=== PATIENT | male | born 1985 ===

== ENCOUNTER 2023-07-30 14:41 | Inpatient (IN) | payer OTHER, SELFPAY ==
[2023-07-30] VITALS (22 sets, daily range): BP systolic 91–125; BP diastolic 58–92; BMI 27.7
[2023-07-30] MEDS: TYLENOL 1000 MG PO (10:04)
[2023-07-30 10:25] LABS: COVID-19 Antigen Negative (Negative)
--- NOTE | 2023-07-30 10:35 | ED.GENMED ---
History of Present Illness
<AVERY Hutchins - Last Filed: 07/30/23 13:50>
General
Chief Complaint: Cold/Flu/URI Symptoms
Source: patient
Exam Limitations: none
Time Seen by Provider: 07/30/23 10:21
Nursing documentation reviewed up to this point in time: agreed with
Travel History
Have you had any contact with someone who has COVID-19?: No
Do you have any symptoms of coronavirus? Fever > 100 degrees, chills, cough, shortness of breath, sore throat, loss of taste or smell, muscle aches, or headache?: Yes
Symptoms:: fever body aches
History of Present Illness
History of Present Illness:
Patient is a 38-year-old male who presents to the ER for evaluation. Patient had high fever at home body aches runny nose headache for the past several days. Other members of family have similar symptoms. Patient with very mild cough.
Review of Systems
<AVERY Hutchins - Last Filed: 07/30/23 13:50>
Review of Systems
Allergies reviewed?: Yes
Other source history: family
All Other Systems: ROS reviewed and negative except as documented in HPI and ROS
Constitutional: Reports fever, fatigue and chills
EENT: Reports runny nose
Respiratory: Denies trouble breathing
Cardiac: Reports no symptoms
ABD/GI: Reports other (dec appetite )
: Reports no symptoms
Musculoskeletal: Reports other (myalgia )
Skin: Reports no symptoms
Neurological: Reports no symptoms
Psychiatric: Reports no symptoms
Phy Exam
<AVERY Hutchins - Last Filed: 07/30/23 13:50>
General Physical Exam
General Presentation: no apparent distress
General age: appears stated age
General Skin: warm and dry
General Habitus: normal
General Mental: alert
General Hydration: dry mucous membranes
Cardiovascular Exam
Cardiovascular Exam: tachycardia
Pulmonary Exam
Pulmonary Exam: no respiratory distress and other (crackles right base )
Neurological Exam
Neurological Exam: alert and oriented x3
Musculoskeletal Exam
Musculoskeletal Exam: full ROM
Skin Exam
Skin Exam: normal color and warm/dry
Psychiatric Exam
Psychiatric Exam: normal mood/affect
Course
<AVERY Hutchins - Last Filed: 07/30/23 13:50>
Orders/Labs/Results
Orders:
Orders
07/30/23 10:02
Acetaminophen [Tylenol] 1,000 mg .ROUTE .STK-MED ONE
07/30/23 10:03
Acetaminophen [Tylenol] 1,000 mg PO NOW STA
07/30/23 10:07
COVID-19 Antigen Urgent
Source: Nasal Swab
Influenza A+B Rapid Molecular Urgent
TRACE Source: Nasal Swab
Specimen Description:
07/30/23 10:36
Electrocardiogram (*1) Stat
Reason for Study: Abdominal Pain
Cardiac Monitoring- Treatment ONCE
EKG- Treatment ONCE
IV Insert/Care/Rem.- Treatment PRN
0.9% Sodium Chloride 1000 ml [Nss] 1,000 ml IV BOLUS
Ketorolac [Toradol] 15 mg IV NOW STA
07/30/23 10:45
Blood Culture Q15M
TRACE Source: Blood/Venous
Specimen Description:
Comment: if not done in ED
07/30/23 10:46
Complete Blood Count/With Diff Urgent
Comprehensive Metabolic Panel Urgent
Manual Differential Urgent
07/30/23 10:52
CXR2 [CR Chest - 2 Views ] Urgent
Comment:
Reason For Exam: fever, low POX
07/30/23 11:26
0.9% Sodium Chloride 1000 ml [Nss] 1,000 ml IV BOLUS
07/30/23 13:32
0.9% Sodium Chloride 500 ml [Nss] 1,000 ml IV Q10H ONE
07/30/23 14:04
Azithromycin 500 mg/250 ml [Zithromax Infusion] 500 mg in 250 ml IV NOW
CefTRIAXone [Rocephin] 1,000 mg IV NOW STA
07/30/23 14:05
Oseltamivir Phosphate [Tamiflu] 75 mg PO NOW STA
07/30/23 14:09
Potassium Chloride [KCl] 40 meq PO NOW STA
07/30/23 14:10
Admit/Transfer Patient As Directed
Co-Sign Provider:
Level of Care: Inpatient admission
Assign to:: IMU- Intermediate Care
Physician / Group: Bernardo
Diagnosis: pneumonia
Reason for Hospitalization: pneumonia
Expected length of stay greater than two midnights?: Yes
ELOS- Estimated Length of Stay in days: 4
I certify the patient meets the requirements for IP care: Yes
07/30/23 14:11
Code Status As Directed
Resuscitation Status: Full Code
07/30/23 14:17
0.9% Sodium Chloride 1000 ml [Nss] 2,000 ml IV BOLUS
07/30/23 14:49
Procalcitonin Stat
PCT Algorithmm Indication: Respiratory
Blood Culture Q15M
TRACE Source: Blood/Venous
Specimen Description:
Comment: if not done in ED
07/30/23 Dinner
Regular
At Your Request: Full Participation
07/30/23 17:43
Strep pneumoniae Antigen Stat
TRACE Source: Urine
Specimen Description:
07/30/23 18:23
0.9% Sodium Chloride 1000 ml [Nss] 1,000 ml IV 150 mls/hr
Azithromycin 500 mg/250 ml [Zithromax Infusion] 500 mg in 250 ml IV Q24H
CefTRIAXone [Rocephin] 2,000 mg IV Q24H
Enoxaparin Sodium [Lovenox] 40 mg SC QPM
Ipratropium/Albuterol Sulfate [Duoneb] 3 ml INH R Q4HPRN PRN
07/30/23 18:23
PULMONARY CONSULT Routine
Consulting Provider: Jay Daniel
Was physician already notified: Yes
Reason for consult: PNA
Legionella Urinary Antigen Routine
TRACE Source: Urine
Specimen Description:
Activity As Directed
Activity Level: Out of Bed-Early Mobility
Intake/ Output As Directed
Frequency: Per unit guidelines
Vital Signs As Directed
Frequency: Per unit guidelines
Weight As Directed
Frequency: Once
Comment: on admission
O2 Therapy [RESP] Routine
Nasal Cannula Liter Flow: 2 LPM
Titrate/Wean O2 to maintain O2 sat greater than (%): 92
Special Instructions: Wean as tolerated
Pulse Ox/spot Check [RESP] Routine
Quantity: 1
DX Deep Vein Thrombosis Video Routine
07/30/23 20:00
Oseltamivir Phosphate [Tamiflu] 75 mg PO BID
07/31/23 06:00
Complete Blood Count/With Diff IN AM
Comprehensive Metabolic Panel IN AM
08/01/23 06:00
Complete Blood Count/With Diff IN AM
Comprehensive Metabolic Panel IN AM
08/02/23 06:00
Complete Blood Count/With Diff IN AM
Comprehensive Metabolic Panel IN AM
08/03/23 06:00
Complete Blood Count/With Diff IN AM
Comprehensive Metabolic Panel IN AM
08/04/23 06:00
Complete Blood Count/With Diff IN AM
Comprehensive Metabolic Panel IN AM
08/05/23 06:00
Complete Blood Count/With Diff IN AM
Comprehensive Metabolic Panel IN AM
08/06/23 06:00
Complete Blood Count/With Diff IN AM
Comprehensive Metabolic Panel IN AM
Abnormal Lab Results
07/30/23
10:46
MCV 78.3 L fL
(80.0-94.0)
Band Neutrophils 14 H %
(0-3)
Lymphocytes (Manual) 17 L %
(20-51)
Sodium 131 L mmol/L
(135-145)
Potassium 3.4 L mmol/L
(3.5-5.1)
Glucose 136 H mg/dl
(70-99)
Calcium 8.3 L mg/dl
(8.4-10.2)
AST 80 H U/L
(17-59)
ALT 90 H U/L
(0-50)
07/30/23 10:46
07/30/23 10:46
Vital Signs
Initial and Last Documented VS:
Initial Vital Signs
Temp Pulse BP
104.7 F H 138 121/78
07/30/23 09:56 07/30/23 09:56 07/30/23 09:56
Last Documented Vital Signs
Temp Pulse Resp BP Pulse Ox
102.2 F H 108 26 111/64 93
07/30/23 18:23 07/30/23 16:30 07/30/23 16:30 07/30/23 16:30 07/30/23 16:15
Park Manager consulted with Physician
Park Manager consulted with physician?: Yes
Name of Physician Consulted: rochelle
<Gerson Staton MD - Last Filed: 07/30/23 18:25>
Orders/Labs/Results
Orders:
Orders
07/30/23 10:02
Acetaminophen [Tylenol] 1,000 mg .ROUTE .STK-MED ONE
07/30/23 10:03
Acetaminophen [Tylenol] 1,000 mg PO NOW STA
07/30/23 10:07
COVID-19 Antigen Urgent
Source: Nasal Swab
Influenza A+B Rapid Molecular Urgent
TRACE Source: Nasal Swab
Specimen Description:
07/30/23 10:36
Electrocardiogram (*1) Stat
Reason for Study: Abdominal Pain
Cardiac Monitoring- Treatment ONCE
EKG- Treatment ONCE
IV Insert/Care/Rem.- Treatment PRN
0.9% Sodium Chloride 1000 ml [Nss] 1,000 ml IV BOLUS
Ketorolac [Toradol] 15 mg IV NOW STA
07/30/23 10:45
Blood Culture Q15M
TRACE Source: Blood/Venous
Specimen Description:
Comment: if not done in ED
07/30/23 10:46
Complete Blood Count/With Diff Urgent
Comprehensive Metabolic Panel Urgent
Manual Differential Urgent
07/30/23 10:52
CXR2 [CR Chest - 2 Views ] Urgent
Comment:
Reason For Exam: fever, low POX
07/30/23 11:26
0.9% Sodium Chloride 1000 ml [Nss] 1,000 ml IV BOLUS
07/30/23 13:32
0.9% Sodium Chloride 500 ml [Nss] 1,000 ml IV Q10H ONE
07/30/23 14:04
Azithromycin 500 mg/250 ml [Zithromax Infusion] 500 mg in 250 ml IV NOW
CefTRIAXone [Rocephin] 1,000 mg IV NOW STA
07/30/23 14:05
Oseltamivir Phosphate [Tamiflu] 75 mg PO NOW STA
07/30/23 14:09
Potassium Chloride [KCl] 40 meq PO NOW STA
07/30/23 14:10
Admit/Transfer Patient As Directed
Co-Sign Provider:
Level of Care: Inpatient admission
Assign to:: IMU- Intermediate Care
Physician / Group: Bernardo
Diagnosis: pneumonia
Reason for Hospitalization: pneumonia
Expected length of stay greater than two midnights?: Yes
ELOS- Estimated Length of Stay in days: 4
I certify the patient meets the requirements for IP care: Yes
07/30/23 14:11
Code Status As Directed
Resuscitation Status: Full Code
07/30/23 14:17
0.9% Sodium Chloride 1000 ml [Nss] 2,000 ml IV BOLUS
07/30/23 14:49
Procalcitonin Stat
PCT Algorithmm Indication: Respiratory
Blood Culture Q15M
TRACE Source: Blood/Venous
Specimen Description:
Comment: if not done in ED
07/30/23 Dinner
Regular
At Your Request: Full Participation
07/30/23 17:43
Strep pneumoniae Antigen Stat
TRACE Source: Urine
Specimen Description:
07/30/23 18:23
0.9% Sodium Chloride 1000 ml [Nss] 1,000 ml IV 150 mls/hr
Azithromycin 500 mg/250 ml [Zithromax Infusion] 500 mg in 250 ml IV Q24H
CefTRIAXone [Rocephin] 2,000 mg IV Q24H
Enoxaparin Sodium [Lovenox] 40 mg SC QPM
Ipratropium/Albuterol Sulfate [Duoneb] 3 ml INH R Q4HPRN PRN
07/30/23 18:23
PULMONARY CONSULT Routine
Consulting Provider: Jay Daniel
Was physician already notified: Yes
Reason for consult: PNA
Legionella Urinary Antigen Routine
TRACE Source: Urine
Specimen Description:
Activity As Directed
Activity Level: Out of Bed-Early Mobility
Intake/ Output As Directed
Frequency: Per unit guidelines
Vital Signs As Directed
Frequency: Per unit guidelines
Weight As Directed
Frequency: Once
Comment: on admission
O2 Therapy [RESP] Routine
Nasal Cannula Liter Flow: 2 LPM
Titrate/Wean O2 to maintain O2 sat greater than (%): 92
Special Instructions: Wean as tolerated
Pulse Ox/spot Check [RESP] Routine
Quantity: 1
DX Deep Vein Thrombosis Video Routine
07/30/23 20:00
Oseltamivir Phosphate [Tamiflu] 75 mg PO BID
07/31/23 06:00
Complete Blood Count/With Diff IN AM
Comprehensive Metabolic Panel IN AM
08/01/23 06:00
Complete Blood Count/With Diff IN AM
Comprehensive Metabolic Panel IN AM
08/02/23 06:00
Complete Blood Count/With Diff IN AM
Comprehensive Metabolic Panel IN AM
08/03/23 06:00
Complete Blood Count/With Diff IN AM
Comprehensive Metabolic Panel IN AM
08/04/23 06:00
Complete Blood Count/With Diff IN AM
Comprehensive Metabolic Panel IN AM
08/05/23 06:00
Complete Blood Count/With Diff IN AM
Comprehensive Metabolic Panel IN AM
08/06/23 06:00
Complete Blood Count/With Diff IN AM
Comprehensive Metabolic Panel IN AM
Abnormal Lab Results
07/30/23
10:46
MCV 78.3 L fL
(80.0-94.0)
Band Neutrophils 14 H %
(0-3)
Lymphocytes (Manual) 17 L %
(20-51)
Sodium 131 L mmol/L
(135-145)
Potassium 3.4 L mmol/L
(3.5-5.1)
Glucose 136 H mg/dl
(70-99)
Calcium 8.3 L mg/dl
(8.4-10.2)
AST 80 H U/L
(17-59)
ALT 90 H U/L
(0-50)
07/30/23 10:46
07/30/23 10:46
Vital Signs
Initial and Last Documented VS:
Initial Vital Signs
Temp Pulse BP
104.7 F H 138 121/78
07/30/23 09:56 07/30/23 09:56 07/30/23 09:56
Last Documented Vital Signs
Temp Pulse Resp BP Pulse Ox
102.2 F H 108 26 111/64 93
07/30/23 18:23 07/30/23 16:30 07/30/23 16:30 07/30/23 16:30 07/30/23 16:15
<AVERY Hutchins - Last Filed: 07/30/23 13:50>
MDM/Problems Addressed
Differential Diagnosis Includes:
Not limited to viral syndrome, COVID, influenza, pneumonia
MDM/Problems Addressed:
Patient is positive for influenza A. Patient did present febrile here at 104.7 very tachycardic. Patient received fluids here and temperature and heart rate have improved however patient has been hypoxic as low as 84% on room air after ambulating
back to the bathroom. X-ray was read as right-sided multilobe likely viral. With hypoxia will admit for continued evaluation will hold off on antibiotics is likely viral. Case discussed with admitting hospitalist. Patient has received 2 L of
normal saline maintenance fluid. Patient is on supplemental oxygen
<AVERY Hutchins - Last Filed: 07/30/23 13:50>
*Radiology
Radiology exam reviewed: radiology read reviewed
*Pulse Oximetry
Patient hypoxic: yes
*EKG
Heart Rate: 111
Rate: tachycardiac
Ischemia: non-specific ST changes
*Critical Care Note
Total Time (30-74mins, 75-104mins- exclusive of procedures): Not Applicable
ED Attending Note
<AVERY Hutchins - Last Filed: 07/30/23 13:50>
-
Portions of this chart may have been created with voice recognition software.� Occasional wrong word or��sound alike� substitutions may have occurred due to the inherent limitations of voice recognition software.
<Gerson Staton MD - Last Filed: 07/30/23 18:25>
ED Attending Note
I performed the substantive portion of visit, reviewed & personally made and approve the management plan that is documented in note by myself or STEPHANY.: Yes
ED Attending Note:
Patient without any significant past medical history, presents to ED secondary to 3-day history of fever, chills, generalized body ache, decreased appetite, and found to be confused this morning by family. Upon arrival, patient is found to be
febrile and on-call, but is able to answer questions appropriately. Patient reports intermittent cough. Denies vomiting or diarrhea. Of note, multiple family members recently have had similar symptoms, now resolved.
History and exam consistent with likely symptoms related to influenza. Patient with high degree of fever along with tachycardia and hypoxia, requiring supplemental oxygen. Patient will be treated aggressively with antipyretic and IV fluids and
will be reassessed. Patient may be candidate for Tamiflu.
After hydration, although improved, patient with sig. desaturation during ambulation (82%). As such, patient will be admitted for further evaluation and treatment.
Discharge Plan
Departure
Patient Disposition: Admit
Date of Disposition: 07/30/23
Time of Disposition: 13:44
Admit to doctor: hospitalist
Presentation/result/management discussed w/ accepting MD/DO: Hospitalist
Patient with high blood pressure during this ER visit?: No
Condition: Fair
Covid-19: Not Applicable
Discharge Problem:
Influenza A, Hypoxia
Interventions
Interventions:
*Risk Screen - Suicide Last Done: 07/30/23 10:29
*General Assessment Last Done: 07/30/23 10:28
*Neglect/Abuse Screening Last Done: 07/30/23 10:29
*ED COVID-19 Vaccine History Last Done: 07/30/23 09:56
ED- Pulmonary Assessment Last Done: 07/30/23 10:28
[2023-07-30] MEDS: TORADOL 15 MG IV (10:48)
[2023-07-30] MEDS: NSS 1000 IV ×3 (10:48→19:05)
[2023-07-30 11:00] LABS: Hematocrit 41.8 % (39.0-52.0); Mean Corp Hgb Conc. 35.9 g/dL (33.0-37.0); Mean Corpuscular Hgb 28.1 pg (27.0-31.0); Mean Corpuscular Volume 78.3 fL (80.0-94.0); Mean Platelet Volume 9.5 fL (7.4-10.4); Platelet Count 173 10^3/uL (130-400); Red Blood Cell Count 5.34 10^6/uL (4.70-6.10); Red Cell Dist. Width 13.4 % (11.5-14.5)
[2023-07-30 11:04] LABS: ALT (SGPT) 90 U/L (0-50); AST (SGOT) 80 U/L (17-59); Albumin 3.9 g/dl (3.5-5.0); Alkaline Phosphatase 40 U/L (38-126); Blood Urea Nitrogen 17 mg/dl (9-20); Calcium 8.3 mg/dl (8.4-10.2); Carbon Dioxide 25 mmol/L (22-30); Chloride 99 mmol/L (98-107); Glucose 136 mg/dl (70-99); Potassium 3.4 mmol/L (3.5-5.1); Sodium 131 mmol/L (135-145); Total Bilirubin 1.1 mg/dl (0.2-1.3); Total Protein 6.4 g/dl (6.3-8.2); eGFR > 60.00
[2023-07-30 11:24] LABS: Absolute Neutrophils -Man Diff 6.3 10^3/uL (1.4-6.5); Band Neutrophils 14 % (0-3); Lymphocytes 17 % (20-51); Monocytes 4 % (2-9); Normal RBC Morphology Yes; Platelets Checked Yes; Segmented Neutrophils 65 % (42-75)
[2023-07-30 11:25] LABS: Total Cells Counted 100
[2023-07-30] MEDS: NSS 1000 ML IV (13:32)
[2023-07-30] MEDS: TAMIFLU 75 MG PO ×2 (14:11→22:08)
[2023-07-30] MEDS: ROCEPHIN 1000 MG IV (14:16)
--- NOTE | 2023-07-30 14:18 | HPS.HSE ---
Addendum entered and electronically signed by Vazquez Chang MD 07/30/23 15:15:
I saw and examined the patient.
The [employer] GRAD[employer]EL TENDER or PA's note was reviewed and I agree with the note.
Comment: 38 y/o M who p/w fever, malaise, myalgia, cough and found to be flu POS.
98/70, 91, 20, 104.7F
NAD, awake and alert
RRR, normal S1/S2
CTAB
CN2-12 intact
diaphoretic, no rashes
CXR (read by me): Multi lobar right-sided pneumonia. No definite involvement on the left. No pleural effusion.
Bands 14%
Na 131
K 3.4
Acute hypoxemic respiratory insufficiency due to influenza A and possibly superimposed bacterial PNA:
-start Tamiflu
-start Rocephin/Azithro for now
-check Procal
-check strep/legionella Ags
-aggressive IVFs (3L NS followed by NS @ 150cc/hr)
-c/s pulm
-IMU
Original Note:
Family Physician
-
Family Physician: Hans Adrian MD
Chief Complaint
-
Cold/Flu/URI symptoms
History of Present Illness
Patient is a 38-year-old male who presents to the ER after having fever, body aches, runny nose and headache for the past several days.� Patient states his significant other is a nurse and she could have brought something home from the hospital. He
is febrile here in the ED with a non productive cough.
Medical History
Past Medical History
Past Medical History: Reports None
Past Surgical History: Reports None
Social History
Tobacco: Non-smoker
Alcohol: None
Drug: None
Personal:
Living: With Family
Employment: Employed
Family History
Family History: Not pertinent
Allergies / Home Medications
Allergies reflects when Allergies were last updated in [facility].
Home Medications with original date entered in [facility] [facility]
Allergy/Medication List:
Allergies
Allergy/AdvReac Type Severity Reaction Status Date / Time
No Known Allergies Allergy Unverified 07/30/23 09:56
Home Medications
No Meds [No Current Medications] 07/30/23
Review of Systems
-
History Source: Patient
A 12 point ROS was completed and negative except as noted: Yes
Constitutional: Reports Fever, Fatigue and Chills
EENT: Reports Runny Nose
Respiratory: Reports Cough
Cardiac: Reports No Symptoms
Abdomen/GI: Reports No Symptoms
: Reports No Symptoms
Musculoskeletal: Reports No Symptoms
Skin: Reports No Symptoms
Neurological: Reports Headache
Endocrine: Reports No Symptoms
Hematologic/Lymphatic: Reports No Symptoms
Psych: Reports Calm
Physical Exam
Vital Signs
Vital Signs
Temp Pulse Resp BP Pulse Ox
98.3 F 91 20 98/70 93
07/30/23 13:58 07/30/23 13:45 07/30/23 13:45 07/30/23 13:30 07/30/23 13:45
Physical Exam
General: Well Developed, Comfortable and Conversant
HEENT: NormoCephalic, Anicteric and Atraumatic
Respiratory: Crackles (R base)
Cardiac: Tachycardia
Breast: Deferred by me
GI: Soft, Non Tender, Non Distended and Normal Bowel Sounds
Rectal: Deferred by Provider
Genito-urinary: Deferred by me
Musculoskeletal: No Clubbing, No Cyanosis and No Edema
Skin: Warm and Dry
Neuro: Awake, Alert, Oriented and AO x 3
Hematologic/Lymphatic: No Lymphadenopathy
Psych: Calm and Intact Judgment/Insight
Laboratory Results
-
07/30/23 10:46
07/30/23 10:46
Laboratory Results
Total Bilirubin 1.1 mg/dl (0.2-1.3) 07/30/23 10:46
AST 80 U/L (17-59) H 07/30/23 10:46
ALT 90 U/L (0-50) H 07/30/23 10:46
Alkaline Phosphatase 40 U/L (38-126) 07/30/23 10:46
Impression/Plan
-
IMPRESSION/PLAN:
Admit to IMU under Hospitalist service
Chest x-ray
IMPRESSION:
Multi lobar right-sided pneumonia. No definite involvement on the left. No pleural effusion.
#Acute hypoxemic respiratory insufficiency due to influenza A and possibly superimposed bacterial PNA
-start Tamiflu
-start Rocephin/Azithro for now
-check Procal
-check strep/legionella Ags
-aggressive IVFs (3L NS followed by NS @ 150cc/hr)
-c/s pulmonary
-IMU
Full Code
DVT Prophylaxis: Lovenox
[2023-07-30] MEDS: ZITHROMAX INFUSION 250 IV (14:34)
[2023-07-30] MEDS: NSS 2000 IV (14:36)
--- NOTE | 2023-07-30 15:06 | CON.PUL ---
Consultation
Consultation Request
Date/Time Consultation Requested: 07/30/2023-3:15 PM
Date/Time Consultation Performed: 07/30/2023-3:30 PM
Requesting Provider: Hospitalist
Performing Provider: Dr. Daniel
Reason for Consultation: Pneumonia
Medical History
-
Chief Complaint: Shortness of breath
History of Present Illness:
38-year-old without previous medical history presents with flu and multilobar pneumonia-pulmonary consulted for shortness of breath/pneumonia 07/30/2023. His household was sick and he recently developed fevers, body aches, runny nose, for several
days. He had shortness of breath, nonproductive cough and was febrile. He came to the emergency room with a nonproductive cough. He currently complains of some shortness of breath with exertion but no chest pain, chest tightness, pleurisy,
hemoptysis, abdominal pain, nausea, weakness or leg swelling.
Past Medical History
Past Medical History: None (No history of hypertension, CAD, pulmonary, renal or gastrointestinal issues)
Social History
Tobacco: Non-smoker
Alcohol: None
Drug: None
Personal:
Living: With Family
Occupational Exposures: No known asbestos exposure
Environmental Exposures: No known tuberculosis exposure
Family History
Family History: Reviewed & Not Pertinent
Allergies / Home Medications
Allergies
Allergy/AdvReac Type Severity Reaction Status Date / Time
No Known Allergies Allergy Unverified 07/30/23 09:56
Home Medications
Medication Instructions Recorded Confirmed Last Taken Type
No Meds [No Current Medications] 07/30/23 07/30/23 Unknown History
Review of Systems
-
Unable to Obtain full review of systems at this time due to: Other (Per HPI)
Vitals / Labs / Diagnostic Testing
Vital Signs
Temp Pulse Resp BP Pulse Ox
98.3 F 91 20 98/70 93
07/30/23 13:58 07/30/23 13:45 07/30/23 13:45 07/30/23 13:30 07/30/23 13:45
Lab Data
07/30/23 10:46
07/30/23 10:46
Microbiology
07/30/23 10:07 Nasal Swab Influenza Types A & B (ANNE) - Final
Influenza A Positive, NAAT
Diagnostic Testing:
Physical Exam
-
Exam:
Well-nourished and well-developed in no apparent distress
HEENT-atraumatic, normocephalic
Neck-supple, no JVD, no bruit
Heart-regular rate and rhythm-no murmurs, rubs or gallops
Chest with diminished breath sounds, crackles and rhonchi
Abdomen-soft, nontender, nondistended, no hepatosplenomegaly
Extremities-no cyanosis, clubbing, edema and good peripheral pulses
Integument-intact, no rashes, lesions or ecchymosis
Neurology-alert and oriented, nonfocal motor and sensory exam
Assessment
-
38-year-old without previous medical history presents with flu and multilobar pneumonia-pulmonary consulted for shortness of breath/pneumonia 07/30/2023.
Assessment
Shortness of breath/multi lobar right-sided pneumonia
Influenza A
Hyponatremia-serum sodium 131
Hypokalemia
Mild hyperglycemia-blood sugar 136
Transaminitis
Conditions present prior to admission:
None
Plan
Patient will be admitted to monitored bed
Supplemental oxygen as needed
High flow oxygen if needed
BiPAP if needed
Noninvasive ventilation if needed
Intubated mechanically ventilated if needed
Aspiration precautions
Nebulizers or bronchodilators as needed
Incentive spirometry
Mucolytic's
Mucus clearing devices
Follow radiographically
Check cultures
Influenza positive
Begin Tamiflu
Begin community-acquired pneumonia antibacterial antibiotics-Rocephin and azithromycin initiated
Procalcitonin pending
Urine Legionella and streptococcal antigens pending
Replace electrolytes
Monitor blood sugar
Insulin supplementation as needed
Follow-up LFTs
DVT prophylaxis
Nutrition
Early mobilization
Reviewed with mother at the bedside as well as emergency room nursing
Outpatient pulmonary follow-up to ensure clearing of infiltrates on chest x-ray, PFTs, etc.
Diagnostic data:
Chest x-ray 07/30/2023-multilobar right-sided pneumonia
Data Reviewed
-
EKG: Report reviewed by me
Radiology: Image personally visualized and interpreted and Report reviewed by me
Medical Tests (Nuc Med, Echo etc): Report reviewed by me
Labs: Labs reviewed by me
Old Records: Reviewed
Total Time Spent with Patient (in minutes): 45
[2023-07-30 15:35] LABS: Procalcitonin 16.76 ng/ml (0.0-0.25)
[2023-07-30] MEDS: KCL 270 MEQ IV (15:58)
[2023-07-30] MEDS: TYLENOL 650 MG PO (18:35)
[2023-07-30] MEDS: LOVENOX SC (19:32)
--- NOTE | 2023-07-30 21:46 | PTCARENOTE ---
Pt arrived from ED via stretcher and able to ambulate into room without assistance. AAOx3. Temp on arrival was 100.7; down from 102.2 in the ED. Gave pt a couple ice bags to place under arms and back of neck to help bring down his temp. Pt
lethargic. BP 118/72 HR 105. Oriented pt to room. Resting in bed with call allen in reach.
[2023-07-30] MEDS: CALDOLOR 104 MG IV (22:27)
--- NOTE | 2023-07-30 22:41 | PTCARENOTE ---
Upon recheck of pt temperature it was 102.5. Notified CRNP. Pickett ordered and administered as well as an order placed for cooling blanket.
[2023-07-31] VITALS (21 sets, daily range): BP systolic 105–126; BP diastolic 34–101
--- NOTE | 2023-07-31 00:20 | PTCARENOTE ---
After pt received the caldolor, temp decreased to 99.5. Cooling blanket not needed at this time. Will trend temperature throughout shift.
[2023-07-31] MEDS: NSS 1000 IV ×3 (02:30→20:54)
[2023-07-31 04:47] LABS: Hematocrit 40.8 % (39.0-52.0); Hemoglobin 14.1 g/dL (13.0-18.0); Mean Corp Hgb Conc. 34.6 g/dL (33.0-37.0); Mean Corpuscular Hgb 28.3 pg (27.0-31.0); Mean Corpuscular Volume 81.9 fL (80.0-94.0); Mean Platelet Volume 9.9 fL (7.4-10.4); Platelet Count 157 10^3/uL (130-400); Red Blood Cell Count 4.98 10^6/uL (4.70-6.10); Red Cell Dist. Width 13.3 % (11.5-14.5); White Blood Cell Count 5.6 10^3/uL (4.8-10.8)
[2023-07-31 05:29] LABS: ALT (SGPT) 68 U/L (0-50); AST (SGOT) 57 U/L (17-59); Albumin 2.7 g/dl (3.5-5.0); Alkaline Phosphatase 37 U/L (38-126); Blood Urea Nitrogen 9 mg/dl (9-20); Calcium 7.7 mg/dl (8.4-10.2); Carbon Dioxide 23 mmol/L (22-30); Chloride 106 mmol/L (98-107); Estimated Creatinine Clearance > 125 ml/min; Glucose 124 mg/dl (70-99); Potassium 4.3 mmol/L (3.5-5.1); Sodium 136 mmol/L (135-145); Total Bilirubin 1.2 mg/dl (0.2-1.3); Total Protein 4.9 g/dl (6.3-8.2); eGFR > 60.00
[2023-07-31 08:10] LABS: Absolute Neutrophils -Man Diff 3.9 10^3/uL (1.4-6.5); Atypical Lymphocytes 1 %; Band Neutrophils 13 % (0-3); Lymphocytes 22 % (20-51); Metamyelocytes 1 % (-); Monocytes 6 % (2-9); Normal RBC Morphology Yes; Platelets Checked Yes; Segmented Neutrophils 57 % (42-75); Total Cells Counted 100
[2023-07-31] MEDS: TAMIFLU 75 MG PO ×2 (08:37→19:49)
[2023-07-31] MEDS: ROCEPHIN 2000 MG IV (08:37)
[2023-07-31] MEDS: STERILE WATER FOR INJECTION 20 ML IV (08:37)
--- NOTE | 2023-07-31 09:13 | W.PN.HOSP.TC ---
Today's Communication/Plan
-
see bold
Assessment / Plan
Assessment / Plan
Gen: NAD, AAOx3.
Eyes: EOMI, PERRLA, no scleral icterus.
Neck: supple.
CV: tachy, reg rhythm, +S1/S2, no m/r/g.
Resp: CTAB, no rales, wheezes, or rhonchi.
Abd: +BS, soft, NT, ND
Skin: No rashes.
Neuro: CN 2-12 intact, non-focal.
Psych: Normal mood and affect.
CXR (read by me): Multi lobar right-sided pneumonia. No definite involvement on the left. No pleural effusion.
Acute hypoxemic respiratory insufficiency due to influenza A and superimposed bacterial PNA:
-cont Tamiflu
-Procal 16.76, cont Rocephin/Azithro
-urinary strep/legionella Ags NEG
-bandemia slightly improved
-follow BCxs
-Transaminitis, likely due to a very mild shock liver, improving
-s/p IVF bolus on admission, cont maintenance IVFs
-pulm following
-IMU
-wean O2 as tolerated
Hyponatremia, resolved
Hypokalemia, resolved
FULL/Lovenox, encourage ambulation
Anticipated Discharge: 24 - 48 hours
Subjective/Interval History
-
Date of Service: July 31, 2023
Pt reports he is feeling somewhat better, concerned about appetite.
Objective Data
-
Labs:
Laboratory Results
07/31/23
04:26
WBC 5.6
Hgb 14.1
Hct 40.8
Plt Count 157
Sodium 136
Potassium 4.3 D
Chloride 106
Carbon Dioxide 23
BUN 9
Creatinine 0.6 L
Glucose 124 H
Calcium 7.7 L
Total Bilirubin 1.2
AST 57
ALT 68 H
Alkaline Phosphatase 37 L
Vital Signs:
Vital Signs
Temp Pulse Resp BP Pulse Ox
99.4 F 105 25 116/71 94
07/31/23 03:10 07/31/23 06:00 07/31/23 06:00 07/31/23 06:00 07/31/23 06:00
I&O
07/30/23 07/31/23 08/01/23
06:59 06:59 06:59
Intake Total 2054
Balance 2054
[2023-07-31] MEDS: TYLENOL 650 MG PO ×2 (09:56→18:25)
--- NOTE | 2023-07-31 11:17 | PTCARENOTE ---
Assumed care of pt from night RN, pt AAOx3, makes needs known. Continues on O2 at 3L nc, SPO2 95%. Temp 101.3, prn Tylenol administered. Pt reports no pain, occasional cough. Encouraged to use IS. Continues on PO Tamiflu and IV ABT, remains on
Droplet precautions. Will continue to monitor through shift.
--- NOTE | 2023-07-31 11:28 | CM ---
CM reviewed medical records. Patient confirmed demographics. Patient lives independently. Patient does not have a history of SNF, VN or DME. Patient is active with his PCP. Patient uses [facility] for medication services.
PLAN: home no needs.
--- NOTE | 2023-07-31 12:30 | W.PN.PUL.V3 ---
Today's Communication / Plan
-
Wean oxygen
Continue antibiotics
Follow-up chest x-ray
Increase activity
Assessment
-
38-year-old without previous medical history presents with flu and multilobar pneumonia-pulmonary consulted for shortness of breath/pneumonia 07/30/2023.
Assessment
Shortness of breath/multi lobar right-sided pneumonia
Influenza A
Hyponatremia-serum sodium 131
Hypokalemia
Mild hyperglycemia-blood sugar 136
Transaminitis
Conditions present prior to admission:
None
Plan
Respiratory status mildly improved
Continue supplemental oxygen-currently on 3 L
Will need to assess discharge supplemental oxygen needs prior to discharge-told patient and mother he may temporarily need supplemental oxygen at time of discharge-hopefully can avoid
High flow oxygen if needed
Aspiration precautions
Nebulizers or bronchodilators as needed
Incentive spirometry
Mucolytic's
Mucus clearing devices
Follow-up chest x-ray 08/01/2023
Culture results reviewed
Unable to produce sputum
Influenza positive
Tamiflu continues
Rocephin and azithromycin continue
Procalcitonin elevated
Urine Legionella and streptococcal antigens-negative
Continue to replace electrolytes
Monitor blood sugar
Insulin supplementation as needed
Follow-up LFTs-improving LFTs
DVT prophylaxis-on Lovenox
Nutrition
Begin ambulation
Reviewed with mother at the bedside
Outpatient pulmonary follow-up to ensure clearing of infiltrates on chest x-ray, PFTs, etc.
Diagnostic data:
Chest x-ray 07/30/2023-multilobar right-sided pneumonia
Subjective Data
-
Date of Service:
Date of Service: July 31, 2023
Chief Complaint: Pulmonary Follow Up, Dyspnea Follow Up and Pneumonia Follow Up
Subjective:
Feels slightly better, still short of breath with exertion, nonproductive cough, no chest pain or abdominal pain
Review of Systems
General: Other (Per HPI)
Objective Data
Data Reviewed
Vital Signs / I&O:
Vital Signs
Temp Pulse Resp BP Pulse Ox
101.4 F H 108 22 113/78 95
07/31/23 07:15 07/31/23 11:19 07/31/23 11:19 07/31/23 11:02 07/31/23 11:19
Intake and Output
07/30/23 07/31/23 08/01/23
06:59 06:59 06:59
Intake Total 2054
Balance 2054
SaO2: 95
Nasal Cannula flow liters per minute: 3
Physical Exam
General: Respiratory Distress (n) and Comfortable
HEENT: Normocephalic, Anicteric and Moist Mucous Membranes
Cardiovascular: Regular Rhythm
Respiratory: Wheeze (n), Crackles, Rhonchi (n), Non-Labored Respirations, Accessory Resp Muscle Use (n) and Stridor (n)
GI: Soft, Non Distended and Non Tender
Neurology: Awake and No Motor Deficits
Skin: Warm, Good Color, Cyanosis (n) and Jaundice (n)
Labs/Micro/Reports
Lab Data
07/31/23 04:26
07/31/23 04:26
Microbiology
07/31/23 05:53 Urine Legionella Urinary Antigen - Final
Negative for Legionella pneumophila Serogroup 1 antigen.
A negative result does not rule out the possiblity of
Legionella infection due to other serogroups or species of
Legionella. Clinical correlation is recommended.
07/30/23 17:43 Urine Streptococcus pneumoniae Antigen (M - Final
Negative for Streptococcus pneumoniae antigen.
A negative result does not exclude infection with
Streptococcus pneumoniae. Clinical correlation is
recommended.
07/30/23 10:07 Nasal Swab Influenza Types A & B (ANNE) - Final
Influenza A Positive, NAAT
--- NOTE | 2023-07-31 13:07 | PTCARENOTE ---
Pt reported to this RN that he has been experiencing double vision since last night, pupils equal and reactive, no other symptoms reported. Blurriness resolves when pt closes one eye. Dr. Chang notified, no new orders at this time. Will continue to
monitor through shift and pass on to night RN.
[2023-07-31] MEDS: ZITHROMAX INFUSION 250 IV (14:22)
[2023-07-31] MEDS: LOVENOX 40 MG SC (16:59)
[2023-08-01] VITALS (12 sets, daily range): BP systolic 115–140; BP diastolic 72–88
--- NOTE | 2023-08-01 05:32 | PTCARENOTE ---
AAOx3, SaO2 95% on 1L O2. SaO2 observed decreasing to 88% when O2 dislodged from nares. Pt ambulated to bathroom with assist of one to maintain cords. Assessment as documented. Pt c/o frequent productive cough increasing this AM. Continues with
complaints of double vision, reports unchanged from previous shift. Call allen placed within reach. Pt encouraged to ring for members of the care team as needed.
[2023-08-01 05:40] LABS: % Basophils 0.2 % (0-2); % Immature Granulocytes 0.5 % (0-0.5); % Lymphocytes 10.1 % (20.5-51.1); % Monocytes 5.4 % (1.7-9.3); % Neutrophils 83.8 % (42.2-75.2); Absolute Lymphocytes 0.6 10^3/uL (1.2-3.4); Absolute Monocytes 0.3 10^3/uL (0.1-0.6); Hemoglobin 12.8 g/dL (13.0-18.0); Mean Corp Hgb Conc. 34.6 g/dL (33.0-37.0); Mean Corpuscular Hgb 27.9 pg (27.0-31.0); Mean Corpuscular Volume 80.8 fL (80.0-94.0); Mean Platelet Volume 9.8 fL (7.4-10.4); Nucleated Red Blood Cells % 0 % (-); Platelet Count 143 10^3/uL (130-400); Red Blood Cell Count 4.58 10^6/uL (4.70-6.10); Red Cell Dist. Width 13.2 % (11.5-14.5)
[2023-08-01 06:07] LABS: ALT (SGPT) 57 U/L (0-50); AST (SGOT) 41 U/L (17-59); Albumin 2.7 g/dl (3.5-5.0); Alkaline Phosphatase 46 U/L (38-126); Blood Urea Nitrogen 7 mg/dl (9-20); Calcium 7.5 mg/dl (8.4-10.2); Carbon Dioxide 23 mmol/L (22-30); Chloride 107 mmol/L (98-107); Estimated Creatinine Clearance > 125 ml/min; Glucose 110 mg/dl (70-99); Potassium 3.6 mmol/L (3.5-5.1); Sodium 133 mmol/L (135-145); Total Bilirubin 0.9 mg/dl (0.2-1.3); eGFR > 60.00
[2023-08-01] MEDS: NSS 1000 IV (08:51)
[2023-08-01] MEDS: ROCEPHIN 2000 MG IV (08:55)
[2023-08-01] MEDS: TAMIFLU 75 MG PO ×2 (08:55→20:31)
[2023-08-01] MEDS: STERILE WATER FOR INJECTION 20 ML IV (08:56)
--- NOTE | 2023-08-01 09:07 | W.PN.HOSP.TC ---
Addendum entered and electronically signed by Vazquez Chang MD 08/01/23 13:27:
Sepsis due to Flu A with superimposed pneumonia
Relative hypocalcemia
Original Note:
Today's Communication/Plan
-
see bold
Assessment / Plan
Assessment / Plan
Gen: NAD, AAOx3.
Eyes: EOMI, PERRLA, no scleral icterus.
Neck: supple.
CV: RRR, +S1/S2, no m/r/g.
Resp: mild rales in the R base
Abd: +BS, soft, NT, ND
Skin: No rashes.
Neuro: remains CN 2-12 intact, non-focal.
Psych: Normal mood and affect.
07/30/23 14:49 Blood/Venous Blood Culture - Preliminary
No Growth in 24 hours- Final report to follow
07/30/23 10:45 Blood/Venous Blood Culture - Preliminary
No Growth in 24 hours- Final report to follow
07/31/23 05:53 Urine Legionella Urinary Antigen - Final
Negative for Legionella pneumophila Serogroup 1 antigen.
A negative result does not rule out the possiblity of
Legionella infection due to other serogroups or species of
Legionella. Clinical correlation is recommended.
07/30/23 17:43 Urine Streptococcus pneumoniae Antigen (M - Final
Negative for Streptococcus pneumoniae antigen.
A negative result does not exclude infection with
Streptococcus pneumoniae. Clinical correlation is
recommended.
07/30/23 10:07 Nasal Swab Influenza Types A & B (ANNE) - Final
Influenza A Positive, NAAT
CXR (read by me): Multi lobar right-sided pneumonia. No definite involvement on the left. No pleural effusion.
Acute hypoxemic respiratory insufficiency due to influenza A and superimposed bacterial PNA:
-cont Tamiflu
-Procal 16.76, cont Rocephin/Azithro
-urinary strep/legionella Ags NEG
-bandemia now resolved
-BCxs NGTD
-Transaminitis, likely due to a very mild shock liver, improving
-s/p IVF bolus on admission, cont maintenance IVFs
-pulm following
-IMU
-wean O2 as tolerated (now down to 95% on RA at rest on my exam)
Diplopia:
-check MRI brain w/wo
Hyponatremia, mild
Hypokalemia, resolved
FULL/Lovenox, encourage ambulation
Transfer to NH
Anticipated Discharge: Within 24 hours
Subjective/Interval History
-
Date of Service: August 01, 2023
Pt now reporting diplopia since he's been sick.
Objective Data
-
Labs:
Laboratory Results
08/01/23
05:25
WBC 6.0
Hgb 12.8 L
Hct 37.0 L
Plt Count 143
Sodium 133 L
Potassium 3.6
Chloride 107
Carbon Dioxide 23
BUN 7 L
Creatinine 0.6 L
Glucose 110 H
Calcium 7.5 L
Total Bilirubin 0.9
AST 41
ALT 57 H
Alkaline Phosphatase 46
Vital Signs:
Vital Signs
Temp Pulse Resp BP Pulse Ox
98.8 F 86 29 125/86 95
08/01/23 03:35 08/01/23 05:19 08/01/23 05:19 08/01/23 05:19 08/01/23 05:30
I&O
07/31/23 08/01/23 08/02/23
06:59 06:59 06:59
Intake Total 2054 2310 / 2310
Output Total 500 / 500
Balance 2054 1810 / 1810
--- NOTE | 2023-08-01 09:14 | W.PN.PUL3 ---
Today's Communication / Plan
-
CXR this AM appears worsened, reviewed with patient and mother at bedside
Productive cough noted, sputum culture to be sent
Added mucus clearance and reviewed techniques--mucinex, vest, acapella
Wean O2 further as tolerated
Continue temp monitoring
Assessment
-
38-year-old without previous medical history presents with flu and multilobar pneumonia-pulmonary consulted for shortness of breath/pneumonia 07/30/2023.
Shortness of breath/multi lobar right-sided pneumonia
Influenza A
Hyponatremia-serum sodium 131
Hypokalemia
Mild hyperglycemia-blood sugar 136
Transaminitis
Conditions present prior to admission:
None
Plan
Respiratory status mildly improved
Continue supplemental oxygen-currently on 1-2 L
Will need to assess discharge supplemental oxygen needs prior to discharge
We discussed mucus clearance, will add mucinex/vest
Aspiration precautions
Nebulizers or bronchodilators as needed
Incentive spirometry
Mucolytic's
Mucus clearing devices
Follow-up chest x-ray 08/01/2023--this was reviewed with patient showing worsening PNA
This may be the peak, will obtain CXR in another 48 hours
Culture results reviewed
Unable to produce sputum, resend order today as he seems more productive
Influenza positive
Tamiflu continues
Agree with empirics abx--Rocephin and azithromycin continue
Procalcitonin elevated
Urine Legionella and streptococcal antigens-negative
Continue to replace electrolytes
Monitor blood sugar
Insulin supplementation as needed
Follow-up LFTs-improving LFTs
DVT prophylaxis-on Lovenox
Nutrition
Begin ambulation
Reviewed with mother at the bedside
Outpatient pulmonary follow-up to ensure clearing of infiltrates on chest x-ray, PFTs, etc.
Diagnostic data:
CXR 08/01/23- Findings suggesting moderate right upper lobe and moderate right lower lobe pneumonia. Progressed. Underlying mass in the right upper lobe cannot be completely excluded.
Chest x-ray 07/30/2023-multilobar right-sided pneumonia
Subjective Data
-
Date of Service:
Date of Service: August 01, 2023
Chief Complaint: Pulmonary Follow Up
Subjective:
patient seen and examined, in isolation
remains on low O2, 1L that is weaning down
still having cough, productive sputum
febrile yesterday
Objective Data
Data Reviewed
Vital Signs / I&O / Oxygen:
Vital Signs
Temp Pulse Resp BP Pulse Ox
98.8 F 86 29 125/86 95
08/01/23 03:35 08/01/23 05:19 08/01/23 05:19 08/01/23 05:19 08/01/23 05:30
Intake and Output
07/31/23 08/01/23 08/02/23
06:59 06:59 06:59
Intake Total 2054 2310 / 2310
Output Total 500 / 500
Balance 2054 1810 / 1810
SaO2 95
Nasal Cannula flow liters per 1
minute
Physical Exam
General: Respiratory Distress (n) and Comfortable
HEENT: Normocephalic, Anicteric and Moist Mucous Membranes
Cardiovascular: Regular Rhythm
Respiratory: Wheeze (n), Crackles (R>L), Rhonchi (n), Non-Labored Respirations, Accessory Resp Muscle Use (n) and Stridor (n)
GI: Soft, Non Distended and Non Tender
Neurology: Awake, Alert, Oriented, AO x 3 and No Motor Deficits
Skin: Warm, Good Color, Cyanosis (n) and Jaundice (n)
Labs/Micro/Reports
Lab Data
08/01/23 05:25
08/01/23 05:25
Microbiology
07/30/23 14:49 Blood/Venous Blood Culture - Preliminary
No Growth in 24 hours- Final report to follow
07/30/23 10:45 Blood/Venous Blood Culture - Preliminary
No Growth in 24 hours- Final report to follow
07/31/23 05:53 Urine Legionella Urinary Antigen - Final
Negative for Legionella pneumophila Serogroup 1 antigen.
A negative result does not rule out the possiblity of
Legionella infection due to other serogroups or species of
Legionella. Clinical correlation is recommended.
07/30/23 17:43 Urine Streptococcus pneumoniae Antigen (M - Final
Negative for Streptococcus pneumoniae antigen.
A negative result does not exclude infection with
Streptococcus pneumoniae. Clinical correlation is
recommended.
07/30/23 10:07 Nasal Swab Influenza Types A & B (ANNE) - Final
Influenza A Positive, NAAT
[2023-08-01 09:34] LABS: Magnesium 1.9 mg/dl (1.6-2.3)
[2023-08-01] MEDS: CALCIUM GLUCONATE 100 IV (10:51)
--- NOTE | 2023-08-01 13:13 | PN.CDI ---
CDI
- -
CDI:
Physician Documentation Request
Admit Date: 07/30/23 14:41
Dear Doctor Bernardo,
Please review the following and provide your response in the progress notes.
Clinical Indicators:
- 08/01 1 gram IV Calcium gluconate given
- Calcium levels as follows:
Laboratory Tests
07/30/23 07/31/23 08/01/23
10:46 04:26 05:25
Calcium 8.3 L 7.7 L 7.5 L
Please provide a diagnosis for the above lab values that were monitored and treatment rendered:
Hypocalcemia
Clinically insignificant abnormal lab value
Other
Use of terms such as suspected, likely, concern for, or probable (associated with a specific diagnosis that is being evaluated, monitored, or treated as if it exists) are acceptable and can be coded in the inpatient setting, when documented at the
time of discharge.
Thank you,
Michel Wood RN
CDI Specialist
Please use your independent medical judgment in providing your response.
--- NOTE | 2023-08-01 13:16 | PN.CDI ---
CDI
- -
CDI:
Physician Documentation Request
Admit Date: 07/30/23 14:41
Dear Doctor Bernardo,
Please review the following and provide your response in the progress notes.
Clinical Indicators:
- Patient admit for Influenza A with superimposed bacterial pneumonia
- On 07/30 admission: Tmax 104.7, HR 100-110's
- 9L IVF given
- IV abx Ceftriaxone, Zithromax given
Please clarify which most accurately describes the patient:
Sepsis due to Flu A with superimposed pneumonia
SIRS due to a non-infectious source
Other
Use of terms such as suspected, likely, concern for, or probable (associated with a specific diagnosis that is being evaluated, monitored, or treated as if it exists) are acceptable and can be coded in the inpatient setting, when documented at the
time of discharge.
Thank you,
Michel Wood RN
CDI Specialist
Please use your independent medical judgment in providing your response.
[2023-08-01] MEDS: MUCINEX 1200 MG PO ×2 (14:10→20:30)
[2023-08-01] MEDS: ZITHROMAX INFUSION 250 IV (14:10)
--- NOTE | 2023-08-01 16:12 | CON.NEURO ---
Consultation
Order
CC:
HPI: This is a 38-year-old man who presented to [facility] on 07/30/2023 with malaise and fever. Neurology consultation was requested for neurology an evaluation and management of diplopia/abnormal brain MRI. According to the
patient he developed intermittent horizontal binocular painless diplopia worse at distance during hospitalization. No reports of headache, dysarthria, dysphagia, ataxia, vertigo, motor or sensory deficits.
ER VS: 121/78, HR 138, T 40.4C
PDMP:no Red meds
Labs: Na 131, gluc 136, normal WBC PL, elevated procalcitonin, mg 1.9, AST 80, ALT 90, normal Alk phos, neg SARS-COv-2
EKG-sinus tachy, QTc Int : 397 ms
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 Paranasal sinus mucosal disease/sinusitis.
PMH:none
PSH:none
SH: ; nonsmoker; woks as an engeneerl deneid excessive ETOh use
FH:no known history fo demyelinating disease
All:
ROS:
Constitutional: Negative. Negative for chills, fever and unexpected weight change.
HENT: Negative for ear pain, hearing loss, tinnitus and trouble swallowing.
Eyes: Negative. Negative for photophobia, pain and visual disturbance.
Respiratory: Negative for cough, choking and shortness of breath.
Cardiovascular: Negative for chest pain, palpitations and leg swelling.
Gastrointestinal: Negative for abdominal pain and vomiting.
Endocrine: Negative. Negative for cold intolerance.
Genitourinary: Negative for dysuria, flank pain and urgency.
Musculoskeletal: Negative for back pain, gait problem, neck pain and neck stiffness.
Skin: Negative for rash.
Allergic/Immunologic: Negative. Negative for immunocompromised state.
Neurological: Negative for dizziness, tremors, seizures, speech difficulty, numbness and headaches.
Psychiatric/Behavioral: Negative for behavioral problems, confusion and hallucinations.
General: Well developed. In no acute distress.
Cardio: Regular rate and rhythm without murmur. Extremities are without cyanosis or edema.
Neuro:
Mental Status: Alert, oriented to person, place, and date. Normal attention and recall. Good fund of knowledge. Follows complex requests across the midline. Comprehension, naming, and repetition intact. Immediate and delayed recall 3/3.
Cranial Nerves: . Pupils are equally round and reactive to light. EOMs full. Visual hall full to confrontation. No ptosis. No nystagmus. V1-V3 intact to light touch and pinprick bilaterally, symmetric. Face symmetric. Normal hearing AU.
The palate elevated well. SCMs and traps 5/5. Tongue midline. No dysarthria.
Motor: Normal bulk and tone. No pronator or arm drift. Strength 5/5 throughout. No clonus.
Reflexes: 2+ throughout the upper extremities and knees. 2/2 in AJs. Plantar responses flexor bilaterally.
Sensory: Normal pinprick, vibration and JPS.
Coordination: No dysmetria or tremor.
Gait: deferred
Assessment and Plan:
I. 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 Differential diagnosis include vascular, metabolic, neoplastic
II. Influenza A
III. Mild hyponatremia
-Fall precaution
-Avoid hyponatremia
-Please check ammonia, thiamine level
-Eye patch
-Repeat brain MRI in 2-3 weeks
-OP Neurology follow up in 2-3 weeks
I personally reviewed all radiology and labs along with past medical records pertinent to current medical problems.
Thank you for allowing us to participate in the care of this patient. Please do not hesitate to contact us with any questions or concerns.
Subjective/Objective
Subjective Data
Date of Service: August 01, 2023
Objective Data
Vital Signs
Temp Pulse Resp BP Pulse Ox
37.1 C 92 37 120/77 96
08/01/23 03:35 08/01/23 10:53 08/01/23 10:53 08/01/23 10:53 08/01/23 14:24
Lab Results
08/01/23 05:25
08/01/23 05:25
Sodium 133 mmol/L (135-145) L 08/01/23 05:25
Potassium 3.6 mmol/L (3.5-5.1) 08/01/23 05:25
BUN 7 mg/dl (9-20) L 08/01/23 05:25
Glucose 110 mg/dl (70-99) H 08/01/23 05:25
Calcium 7.5 mg/dl (8.4-10.2) L 08/01/23 05:25
Patient Allergies
No Known Allergies Allergy (Unverified 07/30/23 09:56)
Modified [place] Score (MRS)
-
MRS Score:
Medications
-
Active Medications
Generic Name Dose Route Start Last Admin
Trade Name Freq PRN Reason Stop Dose Admin
Acetaminophen 650 mg 07/30/23 18:25 07/31/23 18:25
Acetaminophen 325 Mg Tablet PO 08/27/23 18:24 650 mg
Q6HPRN PRN Administration
mild pain/ fever>100.5F
Albuterol/Ipratropium 3 ml 07/30/23 18:23
Ipratropium 0.5/Albuterol 3 Mg (3 Ml Ampul) INH 08/27/23 18:22
R Q4HPRN PRN
shortness of breath/wheezing
Protocol
Ceftriaxone Sodium 2,000 mg 07/31/23 08:00 08/01/23 08:55
Ceftriaxone 2,000 Mg/20 Ml Vial IV 2,000 mg
Q24H RUBA Administration
Enoxaparin Sodium 40 mg 07/30/23 18:23 07/31/23 16:59
Enoxaparin Sodium 40 Mg/0.4 Ml Syringe SC 08/27/23 18:22 40 mg
QPM RUBA Administration
Guaifenesin 1,200 mg 08/01/23 12:00 08/01/23 14:10
Guaifenesin 600 Mg Extended Release Tablet PO 08/29/23 11:59 1,200 mg
Q12 RUBA Administration
Azithromycin 500 mg in 250 mls @ 250 mls/hr 07/31/23 14:00 08/01/23 14:10
Zithromax Infusion IV 250 mls
Q24H RUBA Administration
Oseltamivir Phosphate 75 mg 07/30/23 22:00 08/01/23 08:55
Oseltamivir (Tamiflu) 75 Mg Capsule PO 08/04/23 21:59 75 mg
BID RUBA Administration
Sodium Chloride 0 flush 07/30/23 19:00
Sodium Chloride 0.9% (Flush) Syringe IV 08/27/23 18:59
PER PROTOCOL RUBA
Sterile Water 20 ml 07/31/23 08:00 08/01/23 08:56
Sterile Water For Injection 20 Ml Vial IV 08/28/23 07:59 20 ml
Q24H RUBA Administration
Home Medications
Medication Instructions Recorded
No Meds [No Current Medications] 07/30/23
Vital Signs and Labs
-
Vital Signs and Labs:
Vital Signs
Temp Pulse Resp BP Pulse Ox
37.1 C 92 37 120/77 96
08/01/23 03:35 08/01/23 10:53 08/01/23 10:53 08/01/23 10:53 08/01/23 14:24
Lab Results
08/01/23 05:25
08/01/23 05:25
Sodium 133 mmol/L (135-145) L 08/01/23 05:25
Potassium 3.6 mmol/L (3.5-5.1) 08/01/23 05:25
BUN 7 mg/dl (9-20) L 08/01/23 05:25
Glucose 110 mg/dl (70-99) H 08/01/23 05:25
Calcium 7.5 mg/dl (8.4-10.2) L 08/01/23 05:25
Home Medications
-
Home Medications
No Meds [No Current Medications] 07/30/23
Medications
-
Medications:
Generic Name Dose Route Start Last Admin
Trade Name Freq PRN Reason Stop Dose Admin
Acetaminophen 650 mg 07/30/23 18:25 07/31/23 18:25
Acetaminophen 325 Mg Tablet PO 08/27/23 18:24 650 mg
Q6HPRN PRN Administration
mild pain/ fever>100.5F
Albuterol/Ipratropium 3 ml 07/30/23 18:23
Ipratropium 0.5/Albuterol 3 Mg (3 Ml Ampul) INH 08/27/23 18:22
R Q4HPRN PRN
shortness of breath/wheezing
Protocol
Ceftriaxone Sodium 2,000 mg 07/31/23 08:00 08/01/23 08:55
Ceftriaxone 2,000 Mg/20 Ml Vial IV 2,000 mg
Q24H RUBA Administration
Enoxaparin Sodium 40 mg 07/30/23 18:23 07/31/23 16:59
Enoxaparin Sodium 40 Mg/0.4 Ml Syringe SC 08/27/23 18:22 40 mg
QPM RUBA Administration
Guaifenesin 1,200 mg 08/01/23 12:00 08/01/23 14:10
Guaifenesin 600 Mg Extended Release Tablet PO 08/29/23 11:59 1,200 mg
Q12 RUBA Administration
Azithromycin 500 mg in 250 mls @ 250 mls/hr 07/31/23 14:00 08/01/23 14:10
Zithromax Infusion IV 250 mls
Q24H RUBA Administration
Oseltamivir Phosphate 75 mg 07/30/23 22:00 08/01/23 08:55
Oseltamivir (Tamiflu) 75 Mg Capsule PO 08/04/23 21:59 75 mg
BID RUBA Administration
Sodium Chloride 0 flush 07/30/23 19:00
Sodium Chloride 0.9% (Flush) Syringe IV 08/27/23 18:59
PER PROTOCOL RUBA
Sterile Water 20 ml 07/31/23 08:00 08/01/23 08:56
Sterile Water For Injection 20 Ml Vial IV 08/28/23 07:59 20 ml
Q24H RUBA Administration
[2023-08-01] MEDS: LOVENOX 40 MG SC (17:29)
--- NOTE | 2023-08-01 18:09 | PTCARENOTE ---
Report given to Milady CARNES for transfer to room 422/1. Labs completed prior to transfer. Patient wearing eye patch due to blurrred vision. Neurology consulted. Patient ate a good dinner from home. Family at bedsside. Patient weaned off oxygen, 96% on
room air at this time. Sputum culture sent.
[2023-08-01 18:46] LABS: Ammonia < 9 umol/L (9-30)
--- NOTE | 2023-08-01 20:11 | PTCARENOTE ---
Pt transported via wheelchair, with all his belongings.
[2023-08-02 07:25] LABS: % Basophils 0.2 % (0-2); % Eosinophils 0.5 % (0-6); % Immature Granulocytes 0.7 % (0-0.5); % Lymphocytes 11.6 % (20.5-51.1); % Monocytes 8.3 % (1.7-9.3); % Neutrophils 78.7 % (42.2-75.2); Absolute Lymphocytes 0.7 10^3/uL (1.2-3.4); Absolute Monocytes 0.5 10^3/uL (0.1-0.6); Absolute Neutrophils 4.7 10^3/uL (1.4-6.5); Hematocrit 34.8 % (39.0-52.0); Hemoglobin 12.3 g/dL (13.0-18.0); Mean Corp Hgb Conc. 35.3 g/dL (33.0-37.0); Mean Corpuscular Hgb 27.8 pg (27.0-31.0); Mean Corpuscular Volume 78.7 fL (80.0-94.0); Mean Platelet Volume 10.1 fL (7.4-10.4); Nucleated Red Blood Cells % 0 % (-); Platelet Count 173 10^3/uL (130-400); Red Blood Cell Count 4.42 10^6/uL (4.70-6.10); Red Cell Dist. Width 13.3 % (11.5-14.5); White Blood Cell Count 5.9 10^3/uL (4.8-10.8)
[2023-08-02] MEDS: ROCEPHIN 2000 MG IV (07:35)
[2023-08-02] MEDS: MUCINEX 1200 MG PO (07:35)
[2023-08-02] MEDS: STERILE WATER FOR INJECTION 20 ML IV (07:35)
[2023-08-02] MEDS: TAMIFLU 75 MG PO ×2 (07:37→19:37)
[2023-08-02 07:55] LABS: ALT (SGPT) 73 U/L (0-50); AST (SGOT) 47 U/L (17-59); Alkaline Phosphatase 45 U/L (38-126); Blood Urea Nitrogen 10 mg/dl (9-20); Calcium 7.7 mg/dl (8.4-10.2); Carbon Dioxide 27 mmol/L (22-30); Chloride 105 mmol/L (98-107); Estimated Creatinine Clearance > 125 ml/min; Glucose 108 mg/dl (70-99); Potassium 3.6 mmol/L (3.5-5.1); Sodium 135 mmol/L (135-145); Total Bilirubin 0.7 mg/dl (0.2-1.3); Total Protein 5.4 g/dl (6.3-8.2); eGFR > 60.00
[2023-08-02 08:15] VITALS: BP 129/83
--- NOTE | 2023-08-02 08:33 | W.PN.NEURO.1 ---
Today's Communication / Plan
-
.
Neuro Assessment/Plan
Assessment
This is a 38-year-old RH male who presented to on 07/30/2023 with malaise and fever and was found to have influenza A and multi lobar right-sided pneumonia.�According to the patient he developed intermittent horizontal binocular painless diplopia
worse at distance during hospitalization, prompting MRI brain and neurology consultation.
ER VS: 121/78, HR 138, T 40.4C
PDMP:no Red meds
Labs: Na 131, gluc 136, normal WBC PL, elevated procalcitonin, mg 1.9, AST 80, ALT 90, normal Alk phos, neg SARS-COv-2
EKG-sinus tachy, QTc Int : 397 ms
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 Paranasal sinus mucosal disease/sinusitis.
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
FH:no known history fo demyelinating disease
I. 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
II. Influenza A
III. Mild hyponatremia
Plan
-Fall precautions
-Avoid hyponatremia
-Thiamine level pending
-Eye patch for comfort
-Will follow as-needed. Please contact our Neurology service with any questions/concerns. Patient should follow-up with Neurology in about 3 weeks. May see the REPORTING PROCESS CONSULTANT or Dr. Barrera. Will need repeat MRI brain noncontrast as an outpatient, this can be
ordered at his office follow-up appointment.
Subjective/Objective
Subjective Data
Date of Service: August 02, 2023
No acute events overnight. Patient is reporting intermittent vertically tacked diplopia with distant objects only, resolves with closing one eye. He denies any headache, dizziness, ataxia, apraxia, speech/swallow difficulty, numbness, nausea,
weakness, chest pain, palpitations, and shortness of breath.
Objective Data
Vital Signs
Temp Pulse Resp BP Pulse Ox
98.2 F 81 18 129/83 93
08/02/23 08:15 08/02/23 08:15 08/02/23 08:15 08/02/23 08:15 08/02/23 08:15
Lab Results
08/02/23 06:55
08/02/23 06:55
Sodium 135 mmol/L (135-145) 08/02/23 06:55
Potassium 3.6 mmol/L (3.5-5.1) 08/02/23 06:55
BUN 10 mg/dl (9-20) 08/02/23 06:55
Glucose 108 mg/dl (70-99) H 08/02/23 06:55
Calcium 7.7 mg/dl (8.4-10.2) L 08/02/23 06:55
Patient Allergies
No Known Allergies Allergy (Unverified 07/30/23 09:56)
Review of Systems
-
History Source: Patient
EENT: Other (vertical diplopia with distant objects, resolves with closing one eye)
Respiratory: Negative Trouble Breathing
Cardiac: Negative Chest Pain or Palpitations
Abdomen/GI: Negative Nausea
Genitourinary: Negative Difficulty Voiding
Neuro: Negative Dizzy, Headache, Weakness, Numbness, Ataxia, Tremors or Speech Problem
Physical Exam
-
General: Well Developed, Well Nourished and No Apparent Distress
Eyes: No Ptosis and PERRLA
HEENT: Normocephalic and Atraumatic
Neck: Full Range of Motion
Respiratory: No Dyspnea
GI: Non-distended
Extremities: No Clubbing, No Cyanosis and No Edema
Extended Neurological Exam
Mood & Affect: Mood Unremarkable and Affect Unremarkable
Attention Span & Concentration: Awake, Alert and Interactive
Memory: Unremarkable (AAOx3) and Able to Recall
Tremor: Hand Tremor Absent and Head Tremor Absent
Involuntary Movement: None
Speech: Quality Unremarkable, Quantity Unremarkable and Rate of Production Unremarkable
Cranial Nerve II: Left Eye: Pupillary Reactivity Unremarkable, Pupillary Size Unremarkable and Visual [place] Intact
Cranial Nerve II: Right Eye: Pupillary Reactivity Unremarkable, Pupillary Size Unremarkable and Visual [place]on Intact
Cranial Nerves III, IV, : Extraocular Movement: Extraocular Movement Full in all Directions
Cranial Nerve V: Facial Sensation: Intact to Light Touch
Cranial Nerve VII: Facial Symmetry: Normal Facial Symmetry
Cranial Nerve VIII: Hearing: Unremarkable Hearing to Normal Conversational Volume
Cranial Nerves IX, X: Palate Movement: Palate Elevation Symmetric
Cranial Nerve XI: Shoulder Shrug: Unremarkable
Cranial Nerve XII: Tongue Protusion: Midline
Muscle Strength, Overall: Full Throughout
Muscle Bulk & Tone: Bulk Unremarkable and Tone Unremarkable
Pronator Drift: No Drift in Upper Extremities and No Drift in Lower Extremities
Deep Tendon Reflexes: Unremarkable Throughout
Cold Sensation: Unremarkable
Vibration Sensation: Unremarkable
Touch Sensation: Double Simultaneous Stimulation Unremarkable
Coordination: Kjebda-wtsp-seltag Testing Unremarkable
Babinski Sign: Absent Bilaterally
Gait & Station: Up from Seated Without Problem
Data Reviewed
-
MRI Head: Report Reviewed and Image Reviewed
Labs: Report Reviewed
Reviewed with: Physician and Patient
Medications
-
Active Medications
Generic Name Dose Route Start Last Admin
Trade Name Freq PRN Reason Stop Dose Admin
Acetaminophen 650 mg 07/30/23 18:25 07/31/23 18:25
Acetaminophen 325 Mg Tablet PO 08/27/23 18:24 650 mg
Q6HPRN PRN Administration
mild pain/ fever>100.5F
Albuterol/Ipratropium 3 ml 07/30/23 18:23
Ipratropium 0.5/Albuterol 3 Mg (3 Ml Ampul) INH 08/27/23 18:22
R Q4HPRN PRN
shortness of breath/wheezing
Protocol
Ceftriaxone Sodium 2,000 mg 07/31/23 08:00 08/02/23 07:35
Ceftriaxone 2,000 Mg/20 Ml Vial IV 2,000 mg
Q24H RUBA Administration
Enoxaparin Sodium 40 mg 07/30/23 18:23 08/01/23 17:29
Enoxaparin Sodium 40 Mg/0.4 Ml Syringe SC 08/27/23 18:22 40 mg
QPM RUBA Administration
Guaifenesin 1,200 mg 08/01/23 12:00 08/02/23 07:35
Guaifenesin 600 Mg Extended Release Tablet PO 08/29/23 11:59 1,200 mg
Q12 RUBA Administration
Azithromycin 500 mg in 250 mls @ 250 mls/hr 07/31/23 14:00 08/01/23 14:10
Zithromax Infusion IV 250 mls
Q24H RUBA Administration
Oseltamivir Phosphate 75 mg 07/30/23 22:00 08/02/23 07:37
Oseltamivir (Tamiflu) 75 Mg Capsule PO 08/04/23 21:59 75 mg
BID RUBA Administration
Sodium Chloride 0 flush 07/30/23 19:00
Sodium Chloride 0.9% (Flush) Syringe IV 08/27/23 18:59
PER PROTOCOL RUBA
Sterile Water 20 ml 07/31/23 08:00 08/02/23 07:35
Sterile Water For Injection 20 Ml Vial IV 08/28/23 07:59 20 ml
Q24H RUBA Administration
Home Medications
Medication Instructions Recorded
No Meds [No Current Medications] 07/30/23
--- NOTE | 2023-08-02 09:48 | W.PN.PUL3 ---
Today's Communication / Plan
-
Sputum culture reviewed, poor specimen quality, would complete empiric abx for complete course
Continue tamiflu, continue supportive care
Repeat CXR in AM
Continue airway clearance measures
If showing improvement, can consider discharge planning
Assessment
-
38-year-old without previous medical history presents with flu and multilobar pneumonia-pulmonary consulted for shortness of breath/pneumonia 07/30/2023.
Severe multi lobar right-sided pneumonia
Acute Influenza A infection with severe sepsis
Shortness of breath
Hyponatremia-serum sodium 131
Hypokalemia
Mild hyperglycemia-blood sugar 136
Transaminitis
Conditions present prior to admission:
None
Plan
Respiratory status improved, now on RA and stable
Continue mucus clearance, mucinex/vest
Aspiration precautions
Nebulizers or bronchodilators as needed
Incentive spirometry
Mucolytic's
Mucus clearing devices
Follow-up chest x-ray 08/01/2023--this was reviewed with patient showing worsening PNA
This may be the peak, will obtain CXR in AM
Culture results reviewed
Unable to produce sputum initially, order resent--poor specimen
Influenza positive
Tamiflu continued for complete course
Agree with empirics abx--Rocephin and azithromycin continue for complete course
Procalcitonin elevated
Urine Legionella and streptococcal antigens-negative
Continue to replace electrolytes
Monitor blood sugar
Insulin supplementation as needed
Follow-up LFTs-improving LFTs
DVT prophylaxis-on Lovenox
Nutrition
Begin ambulation
Reviewed with mother at the bedside
Outpatient pulmonary follow-up to ensure clearing of infiltrates on chest x-ray, PFTs, etc.
Diagnostic data:
CXR 08/01/23- Findings suggesting moderate right upper lobe and moderate right lower lobe pneumonia. Progressed. Underlying mass in the right upper lobe cannot be completely excluded.
Chest x-ray 07/30/2023-multilobar right-sided pneumonia
Subjective Data
-
Date of Service:
Date of Service: August 02, 2023
Chief Complaint: Pulmonary Follow Up
Subjective:
patient seen and examined, no acute events ON
now off oxygen
feels his SOB is better
Objective Data
Data Reviewed
Vital Signs / I&O / Oxygen:
Vital Signs
Temp Pulse Resp BP Pulse Ox
98.2 F 81 18 129/83 93
08/02/23 08:15 08/02/23 08:15 08/02/23 08:15 08/02/23 08:15 08/02/23 08:15
Intake and Output
08/01/23 08/02/23 08/03/23
06:59 06:59 06:59
Intake Total 2310 / 2310 1280 / 1280
Output Total 500 / 500
Balance 1810 / 1810 1280 / 1280
SaO2 93
Nasal Cannula flow liters per 1
minute
Physical Exam
General: Respiratory Distress (n) and Comfortable
HEENT: Normocephalic, Anicteric and Moist Mucous Membranes
Cardiovascular: Regular Rhythm
Respiratory: Wheeze (n), Crackles (R>L), Rhonchi (n), Non-Labored Respirations, Accessory Resp Muscle Use (n) and Stridor (n)
GI: Soft, Non Distended and Non Tender
Neurology: Awake, Alert, Oriented, AO x 3 and No Motor Deficits
Skin: Warm, Good Color, Cyanosis (n) and Jaundice (n)
Labs/Micro/Reports
Lab Data
08/02/23 06:55
08/02/23 06:55
Microbiology
08/01/23 15:10 Sputum Gram Stain - Preliminary
07/30/23 14:49 Blood/Venous Blood Culture - Preliminary
No Growth in 48 hours- Final report to follow
07/30/23 10:45 Blood/Venous Blood Culture - Preliminary
No Growth in 48 hours- Final report to follow
07/31/23 05:53 Urine Legionella Urinary Antigen - Final
Negative for Legionella pneumophila Serogroup 1 antigen.
A negative result does not rule out the possiblity of
Legionella infection due to other serogroups or species of
Legionella. Clinical correlation is recommended.
07/30/23 17:43 Urine Streptococcus pneumoniae Antigen (M - Final
Negative for Streptococcus pneumoniae antigen.
A negative result does not exclude infection with
Streptococcus pneumoniae. Clinical correlation is
recommended.
07/30/23 10:07 Nasal Swab Influenza Types A & B (ANNE) - Final
Influenza A Positive, NAAT
[2023-08-02] MEDS: TYLENOL 650 MG PO ×2 (11:27→17:45)
[2023-08-02] MEDS: DUONEB 3 ML INH ×3 (11:54→19:59)
[2023-08-02] MEDS: ZITHROMAX INFUSION 250 IV (13:43)
--- NOTE | 2023-08-02 13:45 | W.PN.HOSP.TC ---
Today's Communication/Plan
-
AB
CXR in am
Assessment / Plan
Assessment / Plan
No Diplopia now
07/30/23 14:49 Blood/Venous Blood Culture - Preliminary
No Growth in 24 hours- Final report to follow
07/30/23 10:45 Blood/Venous Blood Culture - Preliminary
No Growth in 24 hours- Final report to follow
07/31/23 05:53 Urine Legionella Urinary Antigen - Final
Negative for Legionella pneumophila Serogroup 1 antigen.
A negative result does not rule out the possiblity of
Legionella infection due to other serogroups or species of
Legionella. Clinical correlation is recommended.
07/30/23 17:43 Urine Streptococcus pneumoniae Antigen (M - Final
Negative for Streptococcus pneumoniae antigen.
A negative result does not exclude infection with
Streptococcus pneumoniae. Clinical correlation is
recommended.
07/30/23 10:07 Nasal Swab Influenza Types A & B (ANNE) - Final
Influenza A Positive, NAAT
MRI-
1. 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 This finding is associated with a wide range of conditions, most commonly seizures or
metabolic disturbances but can also be seen with infection and various drug/toxins. This is usually transient and short-term follow-up can be performed as clinically indicated.
2. Paranasal sinus mucosal disease/sinusitis.
3. Large expansile mucous retention cyst opacifying the left maxillary sinus.
#Acute hypoxemic respiratory insufficiency due to influenza A and superimposed bacterial PNA:
-cont Tamiflu
-Did not get Flu vaccine this year
-Procal 16.76, cont Rocephin/Azithro-Repeat in am
-urinary strep/legionella Ags NEG
-bandemia now resolved
-BCxs NGTD
-Transaminitis, likely due to a viral infection-improving
-pulm following
-Off O2
#Diplopia:
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
-Neuro eval appreciated
-Rpt MRI as OP
-No Diplopia at present. Happens intermittently.
#Hyponatremia, mild
#Hypokalemia, resolved
#FULL CODE
#DVT Prophylaxis-Lovenox, encourage ambulation
D/W Mom at bed side
D/W RN
Anticipated Discharge: Within 24 hours
Subjective/Interval History
-
Date of Service: August 02, 2023
Objective Data
-
Labs:
Laboratory Results
08/02/23
06:55
WBC 5.9
Hgb 12.3 L
Hct 34.8 L
Plt Count 173 D
Sodium 135
Potassium 3.6
Chloride 105
Carbon Dioxide 27
BUN 10
Creatinine 0.6 L
Glucose 108 H
Calcium 7.7 L
Total Bilirubin 0.7
AST 47
ALT 73 H
Alkaline Phosphatase 45
Vital Signs:
Vital Signs
Temp Pulse Resp BP Pulse Ox
100.5 F H 80 20 129/83 93
08/02/23 11:12 08/02/23 12:01 08/02/23 12:01 08/02/23 08:15 08/02/23 08:15
I&O
08/01/23 08/02/23 08/03/23
06:59 06:59 06:59
Intake Total 2310 / 2310 1280 / 1280
Output Total 500 / 500
Balance 1810 / 1810 1280 / 1280
--- NOTE | 2023-08-02 14:26 | CON.ID ---
Consultation
-
Date/Time Consultation Requested: 08/02/23 13:57
Date/Time Consultation Performed: 08/02/23 14:27
Requesting Provider: Dr Ventura
Performing Provider: Dr Inman
Reason for Consultation: Influenza pneumonia
Chief Complaint / Past History
Chief Complaint
fever, malaise, myalgia, cough
History of Present Illness
Mr Brennan is a 38 year old male previously well who presented here 07/30 for fever, myalgias, rhinorrhea, cough - productive, headache for several days.
Since arrival here he was initially febrile to 102.9 the improved for two days - today febrile to 100.5 orally, bp stable, initially intermittently tachypenic now resolved, initially tachycardic now resolved, wbc 8 on arrival 5 today, hgb on arrival
15 now 12, plt 173, no eos on arrival now present, L shift has been resolving, t bili 0.7, ast 47, alt 73, alk phos 45, ammonia <9, covid ag neg, CXR 07/30 rul and rll pneumonia 08/01 cxr progression of infiltrates, he has been on azithromycin,
ceftriaxone and tamiflu, strep and legionella ags are negative, sputum culture normal olga lidia, procal 07/30 16, brain mri notable for sinusitis, 07/30 influenza a pcr positive. Over course of hospitalization with some painless diplopia and found to
have lesion of corpus collosum - seen by neruology with eye patch and plans for outpatient follow up. Today with relapse of fevers and ID is consulted for assistance with management. Today reporting no headaches, diplopia a bit better. minimal
sinus tenderness. No sore throat. Cough nonproductive - improving. No: nauesa, vomiting, diarrhea, constipation, dysuria, rashes, new joint pains, pain over IV sites or lower extremity swelling. 'overall im a lot better.' asking about dc.
Past History
Past Medical History: None
Past Surgical History: None
Allergy History:
No Known Allergies Allergy (Unverified 07/30/23 09:56)
Medications Reviewed: Yes
Social History
Tobacco: Non-Smoker
Alcohol: None
Drug: None
Family History
Family History: Not Pertinent
Review of Systems
Review of Systems
General: Fever and Chills
All systems: All other systems were reviewed and were negative
Vital Signs
Temp Pulse Resp BP Pulse Ox
100.5 F H 80 20 129/83 93
08/02/23 11:12 08/02/23 12:01 08/02/23 12:01 08/02/23 08:15 08/02/23 08:15
Physical Exam
Physical Exam
Constitutional: No Acute Distress, Chronically Ill and Non-toxic
Cardiovascular: Regular Rate and S1/S2; Negative Murmur or Rub
Pulmonary: Clear and Symmetric; Negative Wheezes, Rales or Rhonchi
Gastrointestinal: Soft, Non Tender, Non Distended and Normal Bowel Sounds
Skin: Warm and Dry; Negative Rash or Jaundice
Neurological: Awake
Lab / Diagnostic Study Results
08/02/23 06:55
08/02/23 06:55
Abs Immat Gran (auto) 0.0 10^3/uL (0-0.05) 08/02/23 06:55
Absolute Neuts (auto) 4.7 10^3/uL (1.4-6.5) 08/02/23 06:55
Absolute Lymphs (auto) 0.7 10^3/uL (1.2-3.4) L 08/02/23 06:55
Absolute Monos (auto) 0.5 10^3/uL (0.1-0.6) 08/02/23 06:55
Absolute Basos (auto) 0.0 10^3/uL (0-0.2) 08/02/23 06:55
Total Counted 100 07/31/23 04:26
Immature Gran % 0.7 % (0-0.5) H 08/02/23 06:55
Neutrophils % 78.7 % (42.2-75.2) H 08/02/23 06:55
Lymphocytes % 11.6 % (20.5-51.1) L 08/02/23 06:55
Monocytes % 8.3 % (1.7-9.3) 08/02/23 06:55
Eosinophils % 0.5 % (0-6) 08/02/23 06:55
Basophils % 0.2 % (0-2) 08/02/23 06:55
Abs Neuts (Manual) 3.9 10^3/uL (1.4-6.5) 07/31/23 04:26
Segmented Neutrophils 57 % (42-75) 07/31/23 04:26
Band Neutrophils 13 % (0-3) H 07/31/23 04:26
Lymphocytes (Manual) 22 % (20-51) 07/31/23 04:26
Procalcitonin 16.76 ng/ml (0.0-0.25) H* 07/30/23 14:49
Microbiology Results
Micro:
08/01/23 15:10 Respiratory Culture - Preliminary
Sputum Usual Respiratory Olga Lidia
Gram Stain - Preliminary
07/30/23 14:49 Blood Culture - Preliminary
Blood/Venous No Growth in 48 hours- Final report to follow
07/30/23 10:45 Blood Culture - Preliminary
Blood/Venous No Growth in 48 hours- Final report to follow
07/31/23 05:53 Legionella Urinary Antigen - Final
Urine Negative for Legionella pneumophila Serogroup 1 antigen.
A negative result does not rule out the possiblity of
Legionella infection due to other serogroups or species of
Legionella. Clinical correlation is recommended.
07/30/23 17:43 Streptococcus pneumoniae Antigen (M - Final
Urine Negative for Streptococcus pneumoniae antigen.
A negative result does not exclude infection with
Streptococcus pneumoniae. Clinical correlation is
recommended.
07/30/23 10:07 Influenza Types A & B (ANNE) - Final
Nasal Swab Influenza A Positive, NAAT
Assessment / Plan
Relapsed Fever
Influenza A
Pneumonia - influenza vs suprainfection
- if another T >100.5 orally then would send repeat blood cultures x2, sputum culture if able, ua, US BL LE for DVT and start vancomycin
- suspect this was a one off event given patient has no new symptoms, if no further fevers then could consider discharge tomorrow with final day of tamiflu (5 day course) and cefdinir 300 mg PO BID. The azithromycin can be stopped after 5 doses (IE
tomorrows dose) due to long half life.
- repeat CXR is planned for tomorrow
- will follow up tomorrow if still in house
[2023-08-02 15:18] VITALS: BP 125/78
[2023-08-02 15:21] LABS: Vitamin D, 25-OH*** < 12.8 ng/mL (30-80)
[2023-08-02] MEDS: LOVENOX 40 MG SC (17:18)
[2023-08-02] MEDS: MUCINEX PO ×2 (19:37→19:41)
[2023-08-02] MEDS: ROBITUSSIN DM 5 ML PO (20:17)
[2023-08-02] MEDS: MELATONIN 5 MG PO (22:24)
[2023-08-02] MEDS: MOTRIN 400 MG PO (22:24)
[2023-08-02 23:05] VITALS: BP 135/83
[2023-08-03 07:55] VITALS: BP 146/90
[2023-08-03 08:00] LABS: % Basophils 0.4 % (0-2); % Eosinophils 0.4 % (0-6); % Immature Granulocytes 3.5 % (0-0.5); % Lymphocytes 10.2 % (20.5-51.1); % Monocytes 13.1 % (1.7-9.3); % Neutrophils 72.4 % (42.2-75.2); Absolute Immature Granulocytes 0.2 10^3/uL (0-0.05); Absolute Lymphocytes 0.5 10^3/uL (1.2-3.4); Absolute Monocytes 0.6 10^3/uL (0.1-0.6); Absolute Neutrophils 3.3 10^3/uL (1.4-6.5); Hematocrit 35.9 % (39.0-52.0); Hemoglobin 12.5 g/dL (13.0-18.0); Mean Corp Hgb Conc. 34.8 g/dL (33.0-37.0); Mean Corpuscular Hgb 27.8 pg (27.0-31.0); Mean Platelet Volume 9.9 fL (7.4-10.4); Nucleated Red Blood Cells % 0 % (-); Platelet Count 199 10^3/uL (130-400); Red Blood Cell Count 4.49 10^6/uL (4.70-6.10); Red Cell Dist. Width 13.1 % (11.5-14.5); White Blood Cell Count 4.6 10^3/uL (4.8-10.8)
[2023-08-03 08:43] LABS: ALT (SGPT) 89 U/L (0-50); AST (SGOT) 57 U/L (17-59); Alkaline Phosphatase 49 U/L (38-126); Blood Urea Nitrogen 8 mg/dl (9-20); Carbon Dioxide 24 mmol/L (22-30); Chloride 100 mmol/L (98-107); Estimated Creatinine Clearance > 125 ml/min; Glucose 118 mg/dl (70-99); Potassium 3.3 mmol/L (3.5-5.1); Sodium 134 mmol/L (135-145); Total Bilirubin 0.8 mg/dl (0.2-1.3); Total Protein 5.4 g/dl (6.3-8.2); eGFR > 60.00
[2023-08-03] MEDS: TYLENOL 650 MG PO (08:57)
[2023-08-03] MEDS: STERILE WATER FOR INJECTION 20 ML IV (08:58)
[2023-08-03] MEDS: ROCEPHIN 2000 MG IV (08:58)
[2023-08-03] MEDS: ROBITUSSIN DM 5 ML PO ×2 (08:59→17:20)
[2023-08-03] MEDS: TAMIFLU 75 MG PO ×2 (08:59→20:50)
[2023-08-03] MEDS: MUCINEX PO ×2 (09:15→19:48)
--- NOTE | 2023-08-03 09:24 | W.PN.PUL3 ---
Today's Communication / Plan
-
Fever noted, w/u sent by care team
CXR this AM reviewed with patient and mother--improving
Has been stable on RA
Discharge planning per team pending fever eval
Outpatient pulmonary FU recommended
Assessment
-
38-year-old without previous medical history presents with flu and multilobar pneumonia-pulmonary consulted for shortness of breath/pneumonia 07/30/2023.
Severe multi lobar right-sided pneumonia
Acute Influenza A infection with severe sepsis
Shortness of breath
Hyponatremia-serum sodium 131
Hypokalemia
Mild hyperglycemia-blood sugar 136
Transaminitis
Conditions present prior to admission:
None
Plan
Respiratory status improved, now on RA and stable
Continue mucus clearance, mucinex/vest
Aspiration precautions
Nebulizers or bronchodilators as needed
Incentive spirometry
Mucolytic's
Mucus clearing devices
Follow-up chest x-ray 08/01/2023--this was reviewed with patient showing worsening PNA
This may be the peak
Repeat CXR today reviewed and improving
Culture results reviewed
Unable to produce sputum initially, order resent--poor specimen
Influenza positive
Tamiflu continued for complete course
Agree with empirics abx--Rocephin and azithromycin continue for complete course
Procalcitonin elevated
Urine Legionella and streptococcal antigens-negative
Continue to replace electrolytes
Monitor blood sugar
Insulin supplementation as needed
Follow-up LFTs-improving LFTs
DVT prophylaxis-on Lovenox
Nutrition
Begin ambulation
Reviewed with mother at the bedside
Outpatient pulmonary follow-up to ensure clearing of infiltrates on chest x-ray, PFTs, etc.
Diagnostic data:
CXR 08/01/23- Findings suggesting moderate right upper lobe and moderate right lower lobe pneumonia. Progressed. Underlying mass in the right upper lobe cannot be completely excluded.
Chest x-ray 07/30/2023-multilobar right-sided pneumonia
Subjective Data
-
Date of Service:
Date of Service: August 03, 2023
Chief Complaint: Pulmonary Follow Up
Subjective:
patient seen and examined, no acute events ON
remains stable on RA
no new complaints
fever noted today
Objective Data
Data Reviewed
Vital Signs / I&O / Oxygen:
Vital Signs
Temp Pulse Resp BP Pulse Ox
102.5 F H 94 16 146/90 97
08/03/23 07:55 08/03/23 07:55 08/03/23 07:55 08/03/23 07:55 08/03/23 07:55
Intake and Output
08/02/23 08/03/23 08/04/23
06:59 06:59 06:59
Intake Total 1280 / 1280 480 / 480
Balance 1280 / 1280 480 / 480
SaO2 97
Nasal Cannula flow liters per 1
minute
Physical Exam
General: Respiratory Distress (n) and Comfortable
HEENT: Normocephalic, Anicteric and Moist Mucous Membranes
Cardiovascular: Regular Rhythm
Respiratory: Clear, Wheeze (n), Rhonchi (n), Non-Labored Respirations, Accessory Resp Muscle Use (n) and Stridor (n)
GI: Soft, Non Distended and Non Tender
Neurology: Awake, Alert, Oriented, AO x 3 and No Motor Deficits
Skin: Warm, Good Color, Cyanosis (n) and Jaundice (n)
Labs/Micro/Reports
Lab Data
08/03/23 07:31
08/03/23 07:31
Microbiology
07/30/23 14:49 Blood/Venous Blood Culture - Preliminary
No Growth in 72 hours- Final report to follow
07/30/23 10:45 Blood/Venous Blood Culture - Preliminary
No Growth in 72 hours- Final report to follow
08/01/23 15:10 Sputum Respiratory Culture - Preliminary
Usual Respiratory Chika
08/01/23 15:10 Sputum Gram Stain - Preliminary
07/31/23 05:53 Urine Legionella Urinary Antigen - Final
Negative for Legionella pneumophila Serogroup 1 antigen.
A negative result does not rule out the possiblity of
Legionella infection due to other serogroups or species of
Legionella. Clinical correlation is recommended.
07/30/23 17:43 Urine Streptococcus pneumoniae Antigen (M - Final
Negative for Streptococcus pneumoniae antigen.
A negative result does not exclude infection with
Streptococcus pneumoniae. Clinical correlation is
recommended.
--- NOTE | 2023-08-03 10:37 | W.PN.ID1 ---
Date of Service
Date of Service: August 03, 2023
Today's Communication
clinically improved however fevers persists
suprainfection vs drug fever - overall I am most suspicious of drug fever - antibiotics adjusted
follow clinically
Assessment / Plan
Relapsed Fever
Influenza A
Pneumonia - influenza vs suprainfection
- send repeat blood cultures x2, sputum culture if able, covid ag, , US BL LE for DVT
- start vancomycin
- start cefepime stop ceftriaxone
- azithromycin can be stopped after 5 doses (IE todays dose) due to long half life.
- repeat CXR improved
- QTc acceptable
- follow clinically
Chief Complaint
-: Fever, Pneumonia and Other (Influenza)
Subjective / Review of Systems
fevers ongoing
bp stable
no specific complaints - feels a lot better - asking about dc
no DVT and lines without phlebitis
anxious for discharge
Vital Signs / Physical Exam
Vital Signs
Vital Signs
Temp Pulse Resp BP Pulse Ox
102.5 F H 94 16 146/90 97
08/03/23 07:55 08/03/23 07:55 08/03/23 07:55 08/03/23 07:55 08/03/23 07:55
Physical Exam
Constitutional: No Acute Distress
Cardiovascular: Regular Rate and S1/S2; Negative Murmur or Rub
Pulmonary: Clear and Symmetric; Negative Wheezes or Rales
Gastrointestinal: Soft, Non Tender, Non Distended and Normal Bowel Sounds
Skin: Warm and Dry; Negative Rash or Jaundice
Lines: PIV
Objective Data
Lab Data
Lab Results
08/03/23 07:31
08/03/23 07:31
Estimated Creat Clear > 125 ml/min 08/03/23 07:31
Total Bilirubin 0.8 mg/dl (0.2-1.3) 08/03/23 07:31
AST 57 U/L (17-59) 08/03/23 07:31
ALT 89 U/L (0-50) H 08/03/23 07:31
Alkaline Phosphatase 49 U/L (38-126) 08/03/23 07:31
Most recent labs reviewed.
Micro Results:
08/01/23 15:10 Respiratory Culture - Final
Sputum Usual Respiratory Chika
Gram Stain - Final
07/30/23 14:49 Blood Culture - Preliminary
Blood/Venous No Growth in 72 hours- Final report to follow
07/30/23 10:45 Blood Culture - Preliminary
Blood/Venous No Growth in 72 hours- Final report to follow
07/31/23 05:53 Legionella Urinary Antigen - Final
Urine Negative for Legionella pneumophila Serogroup 1 antigen.
A negative result does not rule out the possiblity of
Legionella infection due to other serogroups or species of
Legionella. Clinical correlation is recommended.
07/30/23 17:43 Streptococcus pneumoniae Antigen (M - Final
Urine Negative for Streptococcus pneumoniae antigen.
A negative result does not exclude infection with
Streptococcus pneumoniae. Clinical correlation is
recommended.
07/30/23 10:07 Influenza Types A & B (ANNE) - Final
Nasal Swab Influenza A Positive, NAAT
Care Review
Plan reviewed with: Physician (Dr Ventura - dispo)
--- NOTE | 2023-08-03 10:59 | PHA.VAN.IN ---
Assessment
- Assessment
Renal Function: Appears similar to baseline
Concomitant Antimicrobials: cefepime, osletamivir
AUC Dosing Plan
- Dosing Variables
Dosing Weight (kg): 92
Dosing CrCl (ml/min): 125
Vd coefficient (L/kg): 0.7
- Empiric Dosing
Initial / Loading Dose: 2000mg - administration pending
Maintenance Regimen: Vanc 1500mg Q12H starting 08/04 599
Estimated AUC (mcg*h/mL): 466
Estimated Peak (mcg*h/mL): 32
Estimated Trough (mcg/ml): 10.3
Estimated Half Life (H): 6.4
- Monitoring
No levels ordered at this time: consider levels in next few days
Pharmacokinetics Vancomycin I
- -
Patient Age: 38
Patient Sex: Male
Vancomycin Day #: 1
Indication: Pulmonary/Respiratory
Requesting Provider: Dr. Inman
Pertinent Antimicrobial Allergies:
NKDA
Height / Weight:
Height 6 ft
Actual Weight 92.4 kg
- Vital Signs / Lab Results
Temp Pulse Resp BP Pulse Ox
102.5 F H 94 16 146/90 97
08/03/23 07:55 08/03/23 07:55 08/03/23 07:55 08/03/23 07:55 08/03/23 07:55
Lab Results - Hematology
08/01/23 08/02/23 08/03/23
05:25 06:55 07:31
WBC 6.0 5.9 4.6 L
Lab Results - Chemistry
08/01/23 08/02/23 08/03/23
05:25 06:55 07:31
BUN 7 L 10 8 L
Creatinine 0.6 L 0.6 L 0.6 L
Estimated Creat Clear > 125 > 125 > 125
Albumin 2.7 L 3.0 L 3.0 L
Microbiology Results
08/01/23 15:10 Respiratory Culture - Final
Sputum Usual Respiratory Chika
Gram Stain - Final
07/30/23 14:49 Blood Culture - Preliminary
Blood/Venous No Growth in 72 hours- Final report to follow
07/30/23 10:45 Blood Culture - Preliminary
Blood/Venous No Growth in 72 hours- Final report to follow
[2023-08-03 12:23] LABS: COVID-19 Antigen Negative (Negative)
[2023-08-03 13:32] LABS: Urine Albumin Negative (Neg - Trace); Urine Bilirubin Negative (Negative); Urine Character Clear (Clear); Urine Color Yellow; Urine Glucose Negative (Negative); Urine Ketone Negative (Negative); Urine Leukocyte Negative (Negative); Urine Nitrite Negative (Negative); Urine Occult Blood Negative (Negative); Urine Urobilinogen Negative (Neg - 1+)
[2023-08-03] MEDS: VANCOCIN 540 MG IV (14:39)
[2023-08-03] MEDS: KCL 40 MEQ PO (14:39)
[2023-08-03] MEDS: MAXIPIME 2000 MG IV ×2 (14:39→23:05)
[2023-08-03] MEDS: STERILE WATER FOR INJECTION 10 ML IV ×2 (14:39→23:05)
[2023-08-03] MEDS: DRISDOL (VITAMIN D2) 50000 UNITS PO (14:40)
--- NOTE | 2023-08-03 14:56 | W.PN.HOSP.TC ---
Today's Communication/Plan
-
AB change
Watch Temp
Assessment / Plan
Assessment / Plan
No Diplopia now
07/30/23 14:49 Blood/Venous Blood Culture - Preliminary
No Growth in 24 hours- Final report to follow
07/30/23 10:45 Blood/Venous Blood Culture - Preliminary
No Growth in 24 hours- Final report to follow
07/31/23 05:53 Urine Legionella Urinary Antigen - Final
Negative for Legionella pneumophila Serogroup 1 antigen.
A negative result does not rule out the possiblity of
Legionella infection due to other serogroups or species of
Legionella. Clinical correlation is recommended.
07/30/23 17:43 Urine Streptococcus pneumoniae Antigen (M - Final
Negative for Streptococcus pneumoniae antigen.
A negative result does not exclude infection with
Streptococcus pneumoniae. Clinical correlation is
recommended.
07/30/23 10:07 Nasal Swab Influenza Types A & B (ANNE) - Final
Influenza A Positive, NAAT
MRI-
1. 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 This finding is associated with a wide range of conditions, most commonly seizures or
metabolic disturbances but can also be seen with infection and various drug/toxins. This is usually transient and short-term follow-up can be performed as clinically indicated.
2. Paranasal sinus mucosal disease/sinusitis.
3. Large expansile mucous retention cyst opacifying the left maxillary sinus.
#Acute hypoxemic respiratory insufficiency due to influenza A and superimposed bacterial PNA:
-Cont Tamiflu
-Did not get Flu vaccine this year
-Procal 16.76, Trebnding down, still not normal indicating bacterial infection- ( Half life 24-25 hours)
-S/P Rocephin/Azithro
-Had another fever today therefore treating for post influenza MRSA infection empirically
-Antibiotics changed to cefepime and vancomycin
-MRSA screen
-Watch temperature
-urinary strep/legionella Ags NEG
-BCxs NGTD
-Transaminitis, likely due to a viral hgpqcrqux-avkfgnpyu-vx right upper quadrant tenderness
-pulm following
-Off O2
#Diplopia:
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
-Neuro eval appreciated
-Rpt MRI as OP
-No Diplopia at present. Happens intermittently.
#Hyponatremia, mild
#Hypokalemia, resolved
#FULL CODE
#DVT Prophylaxis-Lovenox, encourage ambulation
D/W Mom at bed side
D/W RN
Discussed with infectious disease
Anticipated Discharge: Within 24 hours
Subjective/Interval History
-
Date of Service: August 03, 2023
Objective Data
-
Labs:
Laboratory Results
08/03/23
07:31
WBC 4.6 L
Hgb 12.5 L
Hct 35.9 L
Plt Count 199
Sodium 134 L
Potassium 3.3 L
Chloride 100
Carbon Dioxide 24
BUN 8 L
Creatinine 0.6 L
Glucose 118 H
Calcium 8.0 L
Total Bilirubin 0.8
AST 57
ALT 89 H
Alkaline Phosphatase 49
Vital Signs:
Vital Signs
Temp Pulse Resp BP Pulse Ox
102.5 F H 94 16 146/90 97
08/03/23 07:55 08/03/23 07:55 08/03/23 07:55 08/03/23 07:55 08/03/23 07:55
I&O
08/02/23 08/03/23 08/04/23
06:59 06:59 06:59
Intake Total 1280 / 1280 480 / 480
Balance 1280 / 1280 480 / 480
[2023-08-03 15:55] VITALS: BP 146/84
--- NOTE | 2023-08-03 16:37 | CM ---
Continues on IV anbx.
Plan: home no needs when stable.
[2023-08-03] MEDS: LOVENOX SC (17:16)
[2023-08-03] MEDS: ZITHROMAX INFUSION 250 IV (17:16)
[2023-08-03 23:10] VITALS: BP 127/86
[2023-08-04] MEDS: VANCOCIN 300 MG IV (05:02)
[2023-08-04] MEDS: VANCOCIN 300 ML IV (05:02)
[2023-08-04 06:32] LABS: % Basophils 0.5 % (0-2); % Eosinophils 1.6 % (0-6); % Immature Granulocytes 4.6 % (0-0.5); % Lymphocytes 20.8 % (20.5-51.1); % Monocytes 15.4 % (1.7-9.3); % Neutrophils 57.1 % (42.2-75.2); Absolute Eosinophils 0.1 10^3/uL (0-0.7); Absolute Immature Granulocytes 0.3 10^3/uL (0-0.05); Absolute Lymphocytes 1.2 10^3/uL (1.2-3.4); Absolute Monocytes 0.9 10^3/uL (0.1-0.6); Absolute Neutrophils 3.3 10^3/uL (1.4-6.5); Hematocrit 35.6 % (39.0-52.0); Hemoglobin 12.6 g/dL (13.0-18.0); Mean Corp Hgb Conc. 35.4 g/dL (33.0-37.0); Mean Corpuscular Volume 79.1 fL (80.0-94.0); Mean Platelet Volume 9.5 fL (7.4-10.4); Nucleated Red Blood Cells % 0 % (-); Platelet Count 257 10^3/uL (130-400); Red Cell Dist. Width 13.6 % (11.5-14.5); White Blood Cell Count 5.7 10^3/uL (4.8-10.8)
[2023-08-04 06:55] LABS: ALT (SGPT) 101 U/L (0-50); AST (SGOT) 51 U/L (17-59); Albumin 3.1 g/dl (3.5-5.0); Alkaline Phosphatase 47 U/L (38-126); Blood Urea Nitrogen 8 mg/dl (9-20); Carbon Dioxide 25 mmol/L (22-30); Chloride 105 mmol/L (98-107); Estimated Creatinine Clearance > 125 ml/min; Glucose 106 mg/dl (70-99); Potassium 3.8 mmol/L (3.5-5.1); Sodium 133 mmol/L (135-145); Total Bilirubin 0.6 mg/dl (0.2-1.3); Total Protein 5.6 g/dl (6.3-8.2); eGFR > 60.00
[2023-08-04 07:05] VITALS: BP 126/82
[2023-08-04] MEDS: VITAMIN D3 (cholecalciferol) 25 MCG PO (08:33)
[2023-08-04] MEDS: TAMIFLU 75 MG PO (08:33)
[2023-08-04] MEDS: MUCINEX PO (08:39)
--- NOTE | 2023-08-04 09:19 | W.PN.PUL3 ---
Today's Communication / Plan
-
no fever this AM, wants to go home
continue abx/supportive care
outpatient cxr/pulmonary follow up recommended
discharge planning per team
we will sign off at this time, please call with questions
Assessment
-
38-year-old without previous medical history presents with flu and multilobar pneumonia-pulmonary consulted for shortness of breath/pneumonia 07/30/2023.
Severe multi lobar right-sided pneumonia
Acute Influenza A infection with severe sepsis
Shortness of breath
Hyponatremia-serum sodium 131
Hypokalemia
Mild hyperglycemia-blood sugar 136
Transaminitis
Conditions present prior to admission:
None
Plan
Respiratory status improved, now on RA and stable
Continue mucus clearance, mucinex/vest
Aspiration precautions
Nebulizers or bronchodilators as needed
Incentive spirometry
Mucolytic's
Mucus clearing devices
Follow-up chest x-ray 08/01/2023--this was reviewed with patient showing worsening PNA
This may be the peak
Repeat CXR today reviewed and improving
Culture results reviewed
Unable to produce sputum initially, order resent--poor specimen
Influenza positive
Tamiflu continued for complete course
Agree with empirics abx--Rocephin and azithromycin continue for complete course
Procalcitonin elevated
Urine Legionella and streptococcal antigens-negative
Continue to replace electrolytes
Monitor blood sugar
Insulin supplementation as needed
Follow-up LFTs-improving LFTs
DVT prophylaxis-on Lovenox
Nutrition
Begin ambulation
Reviewed with mother at the bedside
Outpatient pulmonary follow-up to ensure clearing of infiltrates on chest x-ray, PFTs, etc.
Diagnostic data:
CXR 08/01/23- Findings suggesting moderate right upper lobe and moderate right lower lobe pneumonia. Progressed. Underlying mass in the right upper lobe cannot be completely excluded.
Chest x-ray 07/30/2023-multilobar right-sided pneumonia
Subjective Data
-
Date of Service:
Date of Service: August 04, 2023
Chief Complaint: Pulmonary Follow Up
Subjective:
no fever this AM
wants to go home
Objective Data
Data Reviewed
Vital Signs / I&O / Oxygen:
Vital Signs
Temp Pulse Resp BP Pulse Ox
98.5 F 80 16 126/82 92
08/04/23 07:05 08/04/23 07:05 08/04/23 07:05 08/04/23 07:05 08/04/23 07:05
Intake and Output
08/03/23 08/04/23 08/05/23
06:59 06:59 06:59
Intake Total 480 / 480 2220 / 2220
Balance 480 / 480 2220 / 2220
SaO2 92
Nasal Cannula flow liters per 1
minute
Physical Exam
General: Respiratory Distress (n) and Comfortable
HEENT: Normocephalic, Anicteric and Moist Mucous Membranes
Cardiovascular: Regular Rhythm
Respiratory: Clear, Wheeze (n), Rhonchi (n), Non-Labored Respirations, Accessory Resp Muscle Use (n) and Stridor (n)
GI: Soft, Non Distended and Non Tender
Neurology: Awake, Alert, Oriented, AO x 3 and No Motor Deficits
Skin: Warm, Good Color, Cyanosis (n) and Jaundice (n)
Labs/Micro/Reports
Lab Data
08/04/23 05:59
08/04/23 05:59
Microbiology
07/30/23 14:49 Blood/Venous Blood Culture - Preliminary
No Growth in 4 days- Final report to follow
07/30/23 10:45 Blood/Venous Blood Culture - Preliminary
No Growth in 4 days- Final report to follow
08/01/23 15:10 Sputum Respiratory Culture - Final
Usual Respiratory Chika
08/01/23 15:10 Sputum Gram Stain - Final
--- NOTE | 2023-08-04 10:06 | PHA.VAN.FU ---
Vancomycin Assessment / Plan
- Assessment
Renal Function: Stable
WBC's are: WNL
In the past 24 hrs, patient has been: Febrile
Concomitant Antimicrobials: cefepime, oseltamivir
- Dosing Plan
Adjust Regimen to: Vanc 1500mg Q12H
- Monitoring Plan
No level(s) ordered at this time: consider levels in next few days
- Follow Up
Pharmacy will continue to follow.
Vancomycin Follow UP
- -
Patient Age: 38
Patient Sex: Male
Vancomycin Day #: 2
Indication: Pulmonary/Respiratory
Requesting Provider: Dr. Inman
Pertinent Antimicrobial Allergies:
NKDA
Height / Weight:
Height 6 ft
Actual Weight 92.4 kg
- Vital Signs / Lab Results
Temp Pulse Resp BP Pulse Ox
98.5 F 80 16 126/82 92
08/04/23 07:05 08/04/23 07:05 08/04/23 07:05 08/04/23 07:05 08/04/23 07:05
Lab Results - Hematology
08/02/23 08/03/23 08/04/23
06:55 07:31 05:59
WBC 5.9 4.6 L 5.7
Lab Results - Chemistry
08/02/23 08/03/23 08/04/23
06:55 07:31 05:59
BUN 10 8 L 8 L
Creatinine 0.6 L 0.6 L 0.5 L
Estimated Creat Clear > 125 > 125 > 125
Albumin 3.0 L 3.0 L 3.1 L
Lab Results - Urine
08/03/23
11:55
Urine Nitrite (Reflex) Negative
Leukocyte Esterase Rfl Negative
Microbiology Results
07/30/23 14:49 Blood Culture - Preliminary
Blood/Venous No Growth in 4 days- Final report to follow
07/30/23 10:45 Blood Culture - Preliminary
Blood/Venous No Growth in 4 days- Final report to follow
08/01/23 15:10 Respiratory Culture - Final
Sputum Usual Respiratory Chika
Gram Stain - Final
[2023-08-04] MEDS: MAXIPIME 2000 MG IV (12:43)
[2023-08-04] MEDS: STERILE WATER FOR INJECTION 10 ML IV (12:43)
--- NOTE | 2023-08-04 14:46 | W.PN.ID1 ---
Date of Service
Date of Service: August 04, 2023
Today's Communication
- can switch to levofloxacin 750 mg po x 5 more days
- if fevers persist another 5+ days then can follow up with me for FUO workup - unlikely
- follow up with pcp
Assessment / Plan
Relapsed Fever
Influenza A
Pneumonia - influenza vs suprainfection
- repeat blood cultures no growth
- mrsa screen negative - no need for further treatment
- can switch to levofloxacin 750 mg po x 5 more days
- if fevers persist another 5+ days then can follow up with me for FUO workup - unlikely
- follow up with pcp
Chief Complaint
-: Fever, Pneumonia and Other (Influenza)
Subjective / Review of Systems
afebrile this am
BP stable
without leukocytosis
cr stable
has not produced a sputum
mrsa screen now resulted negative
Vital Signs / Physical Exam
Vital Signs
Vital Signs
Temp Pulse Resp BP Pulse Ox
98.3 F 80 16 126/82 92
08/04/23 11:05 08/04/23 07:05 08/04/23 07:05 08/04/23 07:05 08/04/23 07:05
Physical Exam
Constitutional: No Acute Distress
Cardiovascular: Regular Rate and S1/S2; Negative Murmur or Rub
Pulmonary: Clear and Symmetric; Negative Wheezes or Rales
Gastrointestinal: Soft, Non Tender, Non Distended and Normal Bowel Sounds
Skin: Warm and Dry; Negative Rash or Jaundice
Objective Data
Lab Data
Lab Results
08/04/23 05:59
08/04/23 05:59
Estimated Creat Clear > 125 ml/min 08/04/23 05:59
Total Bilirubin 0.6 mg/dl (0.2-1.3) 08/04/23 05:59
AST 51 U/L (17-59) 08/04/23 05:59
ALT 101 U/L (0-50) H 08/04/23 05:59
Alkaline Phosphatase 47 U/L (38-126) 08/04/23 05:59
Most recent labs reviewed.
Micro Results:
08/03/23 11:00 MRSA Screen - Final
Nose No Methicillin Resistant Staphylococcus aureus isolated.
08/03/23 10:57 Blood Culture - Preliminary
Blood/Venous No Growth in 24 hours- Final report to follow
08/03/23 10:43 Blood Culture - Preliminary
Blood/Venous No Growth in 24 hours- Final report to follow
07/30/23 14:49 Blood Culture - Preliminary
Blood/Venous No Growth in 4 days- Final report to follow
07/30/23 10:45 Blood Culture - Preliminary
Blood/Venous No Growth in 4 days- Final report to follow
08/01/23 15:10 Respiratory Culture - Final
Sputum Usual Respiratory Chika
Gram Stain - Final
07/31/23 05:53 Legionella Urinary Antigen - Final
Urine Negative for Legionella pneumophila Serogroup 1 antigen.
A negative result does not rule out the possiblity of
Legionella infection due to other serogroups or species of
Legionella. Clinical correlation is recommended.
07/30/23 17:43 Streptococcus pneumoniae Antigen (M - Final
Urine Negative for Streptococcus pneumoniae antigen.
A negative result does not exclude infection with
Streptococcus pneumoniae. Clinical correlation is
recommended.
07/30/23 10:07 Influenza Types A & B (ANNE) - Final
Nasal Swab Influenza A Positive, NAAT
Care Review
Plan reviewed with: Physician (Dr Lorenzo byrd)
--- NOTE | 2023-08-04 14:48 | W.PN.HOSP.TC ---
Today's Communication/Plan
-
Discharge
Assessment / Plan
Assessment / Plan
No Diplopia now
MRI-
1. 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 This finding is associated with a wide range of conditions, most commonly seizures or
metabolic disturbances but can also be seen with infection and various drug/toxins. This is usually transient and short-term follow-up can be performed as clinically indicated.
2. Paranasal sinus mucosal disease/sinusitis.
3. Large expansile mucous retention cyst opacifying the left maxillary sinus.
#Acute hypoxemic respiratory insufficiency due to influenza A and superimposed bacterial PNA:
-Stop Tamiflu
-Did not get Flu vaccine this year
-Antibiotics changed to cefepime and vancomycin -Levaquin for discharge
-MRSA screen neg, So stopping Doxy per ID
-Fevers better
-urinary strep/legionella Ags NEG
-BCxs NGTD
-Transaminitis, likely due to a viral gmdbxqpbg-hibabqhck-wj right upper quadrant tenderness-PT and mom aware
-pulm following
-Off O2
#Diplopia:
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
-Neuro eval appreciated
-Rpt MRI as OP
-No Diplopia at present.
#Hyponatremia, mild
#Hypokalemia, resolved
#FULL CODE
#DVT Prophylaxis-Lovenox, encourage ambulation
D/W Mom at bed side
D/W RN
Discussed with infectious disease
Discussed about getting flu vaccine every year to prevent influenza . Follow-up lab work discussed. Aware that if he develops a fever he needs to see infectious disease.
Prescription sent
Prescriptions for lab work given to the patient.
Discharge timne 32 min
Anticipated Discharge: Today
Subjective/Interval History
-
Date of Service: August 04, 2023
Objective Data
-
Labs:
Laboratory Results
08/04/23
05:59
WBC 5.7
Hgb 12.6 L
Hct 35.6 L
Plt Count 257 D
Sodium 133 L
Potassium 3.8
Chloride 105
Carbon Dioxide 25
BUN 8 L
Creatinine 0.5 L
Glucose 106 H
Calcium 8.0 L
Total Bilirubin 0.6
AST 51
ALT 101 H
Alkaline Phosphatase 47
Vital Signs:
Vital Signs
Temp Pulse Resp BP Pulse Ox
98.3 F 80 16 126/82 92
08/04/23 11:05 08/04/23 07:05 08/04/23 07:05 08/04/23 07:05 08/04/23 07:05
I&O
08/03/23 08/04/23 08/05/23
06:59 06:59 06:59
Intake Total 480 / 480 2220 / 2220
Balance 480 / 480 2220 / 2220
--- NOTE | 2023-08-04 14:52 | W.DS.TRANS ---
Addendum entered and electronically signed by dAdie Ventura MD 08/04/23 15:26:
Dictation - [id number]
Original Note:
DC Summary - [employer]
-
Discharge Instructions:
Discharge Diagnosis/Procedures Influenza, pneumonia, cytotoxic lesion in the
corpus callosum, mucous retention cyst in the
left maxillary sinus, sinusitis, Slightly
elevated ALT (Liver test)
Diet As tolerated
Activity As tolerated
Driving Restrictions Do not drive until double vision resolves
Blood Work CBC, LFTs,BMP 1 week
Others Tests Chest x-ray 4 weeks. MRI brain with and with out
contrast - See neurology for orders and timing
Instructions:
Stand-Alone Forms:
Changes to Home Medications: Yes
Discharge Medications:
DC Medications w/original date entered in [facility]
acetaminophen 325 mg tablet 650 mg PO Q6HPRN PRN mild pain/ fever>100.5F #0 tabs 08/04/23
cholecalciferol (vitamin D3) 25 mcg (1,000 unit) tablet 25 mcg PO DAILY Supplement #0 tabs 08/04/23
guaifenesin 600 mg tablet, extended release 12 hr 600 mg PO Q12 Congestion #0 tabs 08/04/23
levofloxacin 750 mg tablet 750 mg PO DAILY Infection 5 days #5 tabs 08/04/23
Home Medication Changes
new
acetaminophen 325 mg tablet 650 mg PO Q6HPRN PRN mild pain/ fever>100.5F #0 tabs 08/04/23
cholecalciferol (vitamin D3) 25 mcg (1,000 unit) tablet 25 mcg PO DAILY Supplement #0 tabs 08/04/23
guaifenesin 600 mg tablet, extended release 12 hr 600 mg PO Q12 Congestion #0 tabs 08/04/23
levofloxacin 750 mg tablet 750 mg PO DAILY Infection 5 days #5 tabs 08/04/23
Pending Results: No
[2023-08-05 10:13] LABS: Vitamin B1, Whole Blood 108 nmol/L (70-180)
== END 2023-08-04 16:04 | disposition home or self-care (01) | DRG 871 ==
LOC: 4 WEST ACU 14:41
PROVIDERS: Emergency Medicine; Nurse Practitioner; ADMITTING PHYSICIAN Internal Medicine; ATTENDING PHYSICIAN Hospitalist; CONSULT PHYSICIAN Internal Medicine Critical Care Medicine; CONSULT PHYSICIAN Psychiatry & Neurology Neurology; CONSULT PHYSICIAN Student in an Organized Health Care Education/Training Program; EMERGENCY PHYSICIAN Emergency Medicine; FAMILY PHYSICIAN Hospitalist
DX: A41.89 Other specified sepsis (principal); J09.X1 Influenza due to identified novel influenza A virus with pneumonia; J15.9 Unspecified bacterial pneumonia; E87.1 Hypo-osmolality and hyponatremia; R09.02 Hypoxemia; R06.89 Other abnormalities of breathing; E87.6 Hypokalemia; J34.1 Cyst and mucocele of nose and nasal sinus; J32.8 Other chronic sinusitis; R65.20 Severe sepsis without septic shock; G93.89 Other specified disorders of brain; R74.01 Elevation of levels of liver transaminase levels; R73.9 Hyperglycemia, unspecified; H53.2 Diplopia; E83.51 Hypocalcemia; Z11.52 Encounter for screening for COVID-19
CPT/HCPCS: 70553; 71046; 80053; 81003; 82140; 82306; 83735; 84145; 84425; 85025; 87040; 87070; 87205; 87449; 87502; 87811; 87899; 93005; 93970; 94640; 94669; 96361; 96365; 96366; 96367; 96375; 99285; A9575

== ENCOUNTER → 2023-09-08 07:49 | Outpatient (REF) | payer OTHER, SELFPAY | LOC: HWRAD 07:49 | PROVIDERS: ATTENDING PHYSICIAN Nurse Practitioner Adult Health; FAMILY PHYSICIAN Hospitalist | DX: J09.X1 Influenza due to identified novel influenza A virus with pneumonia (principal) | CPT/HCPCS: 71046 ==

== ENCOUNTER → 2024-01-20 08:12 | Outpatient (REF) | payer OTHER, SELFPAY | LOC: HWRAD 08:12 | PROVIDERS: ATTENDING PHYSICIAN Otolaryngology; FAMILY PHYSICIAN Hospitalist | DX: J32.0 Chronic maxillary sinusitis (principal) | CPT/HCPCS: 70486 ==

== ENCOUNTER → 2024-06-06 11:15 | Outpatient (REF) | payer OTHER, SELFPAY | LOC: CLAB 11:15 | PROVIDERS: ATTENDING PHYSICIAN Otolaryngology | DX: J32.0 Chronic maxillary sinusitis (principal); J34.2 Deviated nasal septum; J34.3 Hypertrophy of nasal turbinates | CPT/HCPCS: 88304; 88311 ==